=== PATIENT | female | born 1940 | race Caucasian/White ===

== ENCOUNTER → 2017-12-04 11:09 | Outpatient (CLI) | payer MEDICARE, OTHER, SELFPAY ==
--- NOTE | 2017-12-04 11:30 | PET_ITS ---
EXAMINATION: FDG PET CT INDICATIONS: A 77-year-old female with history of pancreatic carcinoma presenting for restaging examination. COMPARISON EXAMINATION: Prior FDG PET study dated 02/20/17. INDEX LESION SIZE SUV INTERPRETATION PERSISTENT: Left mid posteromedial hemithorax pulmonary parenchyma 2.0 compared to 2.9, 02/20/17 Quantitative criteria for viable neoplasm are not fulfilled NEW: Left mid posteromedial hemithorax pulmonary parenchyma 2.1 Quantitative criteria for viable neoplasm are not fulfilled, sequential radiologic investigation recommended PREVIOUS: Mid abdominal retroperitoneum and mesentery Demonstrate metabolic resolution on the current examination TECHNIQUE: Following the intravenous administration of 12.76 mCi of F-18 deoxyglucose via the MediPort, multiplanar image acquisitions of the neck, chest, abdomen and pelvis to level of mid thigh, obtained at one hour post radiopharmaceutical administration contemporaneously interpreted with the current CT of the neck, chest, abdomen and pelvis to level of mid thigh, dated 12/04/17 via coregistration and prior FDG PET study dated 02/20/17 reveal: SERUM GLUCOSE LEVEL: 129 mg/dl. HEIGHT: 64 inches. WEIGHT: 90 lbs. FINDINGS: 1. Mild increased glucose metabolism is redefined in the left mid posteromedial hemithorax pulmonary parenchyma generating a current calculated maximum standard uptake value of 2.0 compared to 2.9 defined on the FDG PET study dated 02/20/17. Quantitative criteria for viable neoplasm are not fulfilled. 2. Newly identified increased radiopharmaceutical concentration is manifest in the left mid posteromedial hemithorax pulmonary parenchyma, left lower lobe generating a calculated maximum standard uptake value of 2.1. Quantitative criteria for viable neoplasm are not fulfilled. 3. Normal physiologic distribution of the radiopharmaceutical is apparent in the hepatic and splenic parenchyma, both renal units, bladder and visualized intestinal tract. There is uniform distribution of the radiopharmaceutical concentration compared on the cerebellar hemispheres and cerebral cortex. Diffuse intestinal tract activity is noted throughout all four quadrants of the abdominal-pelvic retroperitoneum, mesentery consistent with normal physiologic distribution of the radiopharmaceutical. The previously identified mid abdominal retroperitoneal and abdominal mesenteric nodular hypermetabolic foci noted on the FDG PET study dated 02/20/17 are not apparent on the current examination. Vhov-R-Lxun-MediPort placement is noted. The prior defined morphologic-anatomic changes noted on CT of the neck, chest, abdomen and pelvis manifest on the FDG PET CT study dated 02/20/17 are essentially unchanged on the present examination. PET/PET/CT Tumor Base -Thigh Subs IMPRESSION: 1. NEGATIVE EXAMINATION. There is no definitive quantitative scintigraphic evidence of recurrent-metastatic viable neoplasm. 2. Enhanced glucose concentration redefined in the left mid posteromedial hemithorax pulmonary parenchyma, as well as newly apparent in the left mid medial lung zone does not fulfill quantitative criteria for viable neoplasm. (Gomes et al, Annals of Internal Medicine, 138:724, 2003). 3. Metabolic and/or anatomic stability may be ensured in the left hemithorax pulmonary parenchymal abnormality with repeat FDG PET study and/or CT of the thorax in three-six months. (Xiu, Journal of Nuclear Medicine 45:88, P2004. Devan, Seminars in Thoracic and Cardiovascular Surgery 14:292, 2002). 4. There is interval metabolic resolution of the previously identified mid abdominal retroperitoneal and mesenteric hypermetabolic abnormalities. 5. Overall, compared to the prior FDG PET study dated 02/20/17, there is current absence of defined viable neoplastic disease. Electronic Signature Mikey Rosario D.O. Electronically Signed: Mikey Rosario DO at 21:36 EDT Tel , Service support ,
== END ==
PROVIDERS: Visit Provider Internal Medicine Medical Oncology
DX: C25.1 Malignant neoplasm of body of pancreas (principal); C34.32 Malignant neoplasm of lower lobe, left bronchus or lung; R97.8 Other abnormal tumor markers
CPT/HCPCS: 78815; A9552; A4216

== ENCOUNTER → 2018-03-12 14:27 | Outpatient (CLI) | payer MEDICARE, OTHER, SELFPAY | PROVIDERS: Visit Provider Internal Medicine Medical Oncology | DX: C25.9 Malignant neoplasm of pancreas, unspecified (principal); C78.00 Secondary malignant neoplasm of unspecified lung | CPT/HCPCS: 71260; 74177; Q9967; A4216 ==

== ENCOUNTER → 2018-04-24 10:17 | Outpatient (CLI) | payer MEDICARE, OTHER, SELFPAY ==
--- NOTE | 2018-04-24 10:45 | MRI_ITS ---
STUDY: MRI BRAIN WITH AND WITHOUT CONTRAST REASON FOR EXAM: Female, 77 years old. Pancreatic cancer and right-sided headaches TECHNIQUE: Standardized multiplanar fat and water weighted pulse sequences were obtained. 8 ml of Dotarem contrast material was administered intravenously for the contrast portion of the examination. COMPARISON: 02/23/2017 FINDINGS: Normal size of the ventricles and extra-axial spaces for the patient's age. Stable white matter disease is likely microangiopathic in nature. Normal bilateral basal ganglia. Normal thalami. There is no extra-axial fluid accumulation. Normal flow voids within the major intracranial circulation suggesting patency by spin echo criteria. Normal venous enhancement. There is no enhancing intra-axial or extra-axial abnormality. Normal sella turcica, pituitary gland, infundibular stalk, optic chiasm and hypothalamus. Normal tectal plate and pineal gland. Normal midbrain, farheen and medulla. Normal cerebellum. Normal basal cisterns. Normal bilateral temporal bones. Normal bilateral internal auditory canals. No demonstrated orbital abnormality, within the constraints of a routine brain study. Normal visualized paranasal sinuses. Hyperostosis frontalis interna. Normal visualized soft tissue structures. Normal visualized upper cervical spine. MRI/Brain W/WO Contrast IMPRESSION: No evidence of infarct, hemorrhage, mass, or abnormal enhancement. No evidence of intracranial metastatic disease. Stable mild white matter disease, likely related to microangiopathy. Electronically Signed: Clemente Devries MD at 2:22 EDT Tel , Service support ,
== END ==
PROVIDERS: Referring Provider Internal Medicine Medical Oncology; Visit Provider Internal Medicine Medical Oncology
DX: R51 Headache (principal); C25.9 Malignant neoplasm of pancreas, unspecified; C78.00 Secondary malignant neoplasm of unspecified lung
CPT/HCPCS: 70553

== ENCOUNTER 2018-04-25 11:35 | Emergency (ER) | payer MEDICARE, OTHER, SELFPAY ==
[2018-04-25 11:36] VITALS: BP 146/79; PULSE 82; RESP 16; TEMP 36.7; O2SAT 98; BMI 16.5
--- NOTE | 2018-04-25 11:53 | EKG12_ITS ---
Test Reason : CP Blood Pressure : / mmHG Vent. Rate : 074 BPM Atrial Rate : 074 BPM P-R Int : 118 ms QRS Dur : 124 ms QT Int : 392 ms P-R-T Axes : 043 027 065 degrees QTc Int : 435 ms Normal sinus rhythm with sinus arrhythmia Non-specific intra-ventricular conduction delay T wave abnormality, consider lateral ischemia Abnormal ECG Confirmed by CARMEN JENKINS, CHANDLER ([id number]), content editor JESSICA CHAVEZ ([id number]) on 04/30/2018 3:11:36 PM Referred By: JOAQUIN Confirmed By:CHANDLER MORALES MD
--- NOTE | 2018-04-25 11:57 | ED.VISSUMM ---
- ER Visit Summary Date of Service: 04/25/18 Chief Complaint: Chest pain History of Present Illness: The patient is a 77 F presents to the emergency department with chest pain. Patient has a history of pancreatic cancer. She has had recurrence. She is currently undergoing chemotherapy with Dr. Gregg here in [place]. She states that she spends about 6 months a year and [place] and the other 6 months in [place]. She has had history of total pancreatectomy and is an insulin-dependent diabetic now. She was started on a new chemotherapy regimen last week. She states that approximately 12 hours of beginning it, she began to have a substernal left-sided chest heaviness into her left arm. She states it lasted about 3 days. It is since resolved. She denies dyspnea. She is mildly nauseated, but states this is chronic. She denies any shortness of breath. She was sent over from oncology due to concern for cardiac toxicity. Physical Examination: Vital signs reviewed General: Well-nourished, well-developed Head: Normocephalic, atraumatic Eyes: Pupils equal and reactive, extraocular muscles intact Neck, supple, no lymphadenopathy Heart: Regular rate and rhythm Respiratory: No distress, clear bilaterally Abdomen: Soft, nontender, nondistended, no peritoneal signs Back: Nontender Extremities: Nontender, no edema, no cords Skin: Normal color no rash Neuro: Alert and oriented, no focal or lateralizing deficits Test Results: [] Emergency Department Course and Treatment: EKG was done on patient arrival. She does have some T wave inversion in V4 and V5. I do not have an old to compare to. The patient is absolutely pain-free here. Her x-ray shows some scarring which does appear to be chronic. Her labs are at her baseline. Her cardiac enzymes are normal. At this time, given the patient's lack of pain, normal cardiac enzymes, and history of new chemotherapy I do feel that she is safe for discharge with outpatient follow-up. She had no exertional dyspnea. She had no further chest pain. She is comfortable with this plan of care. I did spend time counseling her on concerning symptoms and reasons to return. She will be discharged home. Treatment Plan: [] Disposition: Discharge Impression: Chest pain This note was generated with [employer] dictation software. It may contain incorrect words, spelling, and punctuation that were not noted in review of the chart prior to signing ED Disposition - Plan for ED Patient: Chief Complaint: Chest Other Instructions: ED Chest Pain Atypical Unkn Cause Referrals: [facility] Doctor,Out of [Primary Care Provider] -
[2018-04-25 12:09] VITALS: O2SAT 100
--- NOTE | 2018-04-25 12:10 | RAD_ITS ---
STUDY: X-RAY CHEST REASON FOR EXAM: Female, 77 years old. Chest pain TECHNIQUE: Single AP portable view of the chest. COMPARISON: None. FINDINGS: MediPort is seen on the right side is in good position. There is scarring in the superior segment of the left lung lower lobe. There is no demonstrated pleural abnormality. Normal size heart. Normal mediastinum and sarita. Normal visualized pulmonary arteries. Normal visualized aortic arch and descending thoracic aorta. There are diffuse degenerative changes of the visualized thoracic spine. There is degenerative osteoarthritis of the bilateral shoulders. There is no demonstrated abnormality of the visualized soft tissue structures of the upper abdomen. RAD/Chest 1 View (Portable) IMPRESSION: There is scarring in the superior segment of the left lung lower lobe. Electronically Signed: Micheline Clarke MD at 12:54 EDT Tel , Service support ,
[2018-04-25 12:23] LABS: Basophil# 0.02 X10^3/uL; Basophil% 0.2 % (0-1); Hematocrit 30.2 % (37-47); Hemoglobin 9.4 g/dl (12.0-15.0); Lymphocyte % 6.2 % (19-41); Mean Corp Hgb Conc 31.1 g/gl (32-36); Mean Corpuscular Hgb 31.5 pg (27.0-32.0); Mean Corpuscular Volume 101.3 fL (81-99); Mean Platelet Vol. 9.9 fl (6.2-12.0); Monocyte% 6.2 % (0-10); Neutrophil # 6.99 X10^3/uL (2.7-7.7); Neutrophil % 87.2 % (47-70); Platelet Count 272 K/mm3 (150-450); RBC Distribution Width SD 54.7 fl (35.1-43.9); Red Blood Count 2.98 M/mm3 (4.2-5.4)
[2018-04-25 12:34] LABS: Differential Indicated SCAN CRITERIA MET; POSITIVE COUNT NO; POSITIVE DIFFERENTIAL YES; POSITIVE MORPHOLOGY NO
[2018-04-25 12:35] LABS: Anion Gap 6 (5-15); BUN 11 mg/dL (7-18); BUN/Creat Ratio 21.6 RATIO (10-20); Chloride 104 mmol/L (98-107); Creatinine, Serum 0.51 mg/dL (0.55-1.02); EST Glomerular Filtration Rate 124 mL/min (>60); Est Glom Filt Rate - Afr Amer 151 mL/min (>60); Estimated Creatinine Clearance 32.39 ml/min; Glucose 255 mg/dL (74-106); Potassium 3.6 mmol/L (3.5-5.1); Sodium Level 141 mmol/L (136-145)
[2018-04-25 12:55] LABS: Hypochromasia 1+; Macrocytosis 1+; Platelet Estimate ADEQUATE (ADEQ)
[2018-04-25 13:03] VITALS: BP 140/81; PULSE 77; RESP 15; O2SAT 98
== END 2018-04-25 13:09 | disposition home or self-care (01) ==
LOC: ED 12:15
PROVIDERS: Emergency Provider Emergency Medicine
DX: R07.9 Chest pain, unspecified (principal); C25.9 Malignant neoplasm of pancreas, unspecified; E11.9 Type 2 diabetes mellitus without complications; Z79.4 Long term (current) use of insulin; R11.0 Nausea
CPT/HCPCS: 36415; 71045; 80048; 84484; 85025; 93005; 99283; A4216

== ENCOUNTER 2018-05-12 05:31 | Inpatient (IN) | payer MEDICARE, OTHER, SELFPAY ==
[2018-05-12 05:45] VITALS: BMI 16.0
--- NOTE | 2018-05-12 06:37 | HP.PCM_ITS ---
Problem List (1) Intractable abdominal pain Status: Acute (2) Pancreatic cancer metastasized to lung Status: Chronic History of Present Illness Date of Admission: 05/12/18 Chief Complaint: headache The patient is a 77 year old F with a significant history of pancreatic cancer metastatic to her lungs who presented with excruciating headache that started the day before her admission to the hospital. Patient initially presented to [facility] ED. Her case was discussed with our oncology on-call and the plan was for the patient to get an MRI of her head. However because [facility] did not have an MRI patient was transferred to the hospital. Patient reported that in the morning before admission she had excruciating pain in the head and she heard multiple popping sounds from her head. Her pain is exacerbated by moving of her neck. She describes her pain as sharp and it involves her whole head. She did not have any visual symptoms before going to the ED. However after administration of IV narcotics at [facility] patient reports that she is seeing double. Patient reports that morphine IV given at outside hospital did not provide any relief. However Dilaudid IV given helped her pain. Her pancreatic cancer was diagnosed in September 2013 and she had a complete pancreatomy; spleen removal; removal of 62 lymph nodes; removal of part of the stomach and duodenum. She had a chemotherapy and radiation while seen in [place]. At this point the cancer has metastasized to her lungs. She still gets chemotherapy. Her last chemotherapy was 10 days ago. She reported that radiation therapy did not help her. She does not get any radiation therapy at this time. She follows up with Dr. Greenfield, oncologist. 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 GERD (gastroesophageal reflux disease) K21.9 Gallstones K80.20 H/O transfusion of whole blood Z92.89 Heart murmur R01.1 High cholesterol E78.00 History of hysterectomy Z90.710 IBS (irritable bowel syndrome) K58.9 Osteoarthritis M19.90 Pancreatitis K85.90 Recurrent UTI N39.0 Type 1 diabetes mellitus E10.9 Dx : d/t pancreatectomy in 2013 Last exacerbation : DKA : never Hypoglycemic episode : never ER visit : never Vision problems H54.7 Allergies hydrocodone [From Vicodin] Adverse Reaction (Intermediate, Verified 05/09/18 11:26) Unknown MAKES HEART RACE pegfilgrastim [From Neulasta] Adverse Reaction (Intermediate, Verified 05/09/18 11:26) Abd cramps/diarrhea procaine [From Novocain] Adverse Reaction (Mild, Verified 05/09/18 11:26) Unknown GOES RIGHT TO SLEEP Home Medications: Ambulatory Orders Medication Instructions Recorded Calcium Carbonate [Tums] 500 mg PO 4X/DAY 02/03/17 Calcium Citrate/Vitamin D3 1 ea PO BID 02/03/17 [Calcium Citrate-Vit D3 Tablet] Cholecalciferol (Vitamin D3) 1,000 unit PO DAILY 02/03/17 [Vitamin D3] Clonazepam [Klonopin] 0.5 mg PO QHS 02/03/17 Duloxetine HCl 30 mg PO DAILY 02/03/17 Glucagon,Human Recombinant 1 mg IJ PRN PRN 02/03/17 [Glucagon Emergency Kit] Ketoconazole [Nizoral] 120 ml TP UD 02/03/17 Magnesium Oxide [Magnesium] 500 mg PO DAILY 02/03/17 Multivit-Min/FA/Lycopen/Lutein 1 tab PO DAILY 02/03/17 [Centrum Silver Tablet] Omeprazole [Prilosec] 20 mg PO DAILY 02/03/17 Prochlorperazine Maleate 10 mg PO DAILY 02/03/17 [Compazine] Ranitidine HCl [Zantac 75] 75 mg PO QHS 02/03/17 Simvastatin [Zocor] 10 mg PO QHS 02/03/17 Thiamine Mononitrate [Vitamin B-1] 100 mg PO DAILY 02/03/17 Lipase/Protease/Amylase [Josafat Velasquez 2 ea PO TID #180 capsule. 12/06/17 36,000 Units Capsule] denosumab 60 mg/mL subcutaneous 60 mg SC [id number] 02/28/18 syringe insulin aspart U- 100 100 unit/mL See Rx Instructions SC QDAY 02/28/18 subcutaneous solution meclizine 25 mg tablet 25 mg PO QDAY PRN 02/28/18 Magic Mouth Wash 1 dose PO PRN PRN 05/09/18 Surgical History: Surgical History (Last Reviewed 05/12/18 @ 07:54 by Sanchez Park MD) History of hip replacement Z96.649 History of pancreatectomy Z90.410 Hx of cholecystectomy Z90.49 Hx of splenectomy Z90.81 Surgical History: hysterectomy Lives: Spouse/ Significant Other Smoking Status: Never smoker Alcohol: None Review of Systems Constitutional: Denies: Chills, Fever, Weight Change HEENT: Reports: Head Aches. Denies: Sinus Congestion, Sinus Drainage Cardiovascular: Denies: Chest Pain, Palpitations Respiratory: Denies: Cough, Shortness of breath at rest, Sputum production Gastrointestinal: Denies: Abdominal Pain, Nausea, Vomiting Genitourinary: Denies: Dysuria Musculoskeletal: Denies: Joint Pain, Joint Tenderness Skin: Denies: Rash, Wounds Neurological: Denies: Numbness, Tingling, Focal weakness Psychiatric: Denies: Anxiety, Depression, Homicidal Ideations, Suicidal Ideations Hematologic/ Lymphatic: Denies: Easy Bruising, Easy Bleeding VTE Information - Inpt Only VTE Present on Admission: No VTE Mechan Device Prophylaxis: None VTE Pharm Prophylaxis ordered?: Yes Patient Problems: Active and Suspected Problems (Last Reviewed 05/09/18 @ 11:26 by Sabina Kwan) Intractable abdominal pain (Acute) - Physical Exam General: Alert, Oriented x3 - Patient thought the month was March while it is April. She knew the year., Cooperative HEENT: Atraumatic, PERRLA, EOMI, Normocephalic Neck: Supple, No JVD, Negative Carotid Bruits, - - Headache in moving of neck Lungs: Clear to auscultation, Normal air movement Cardiovascular: Regular rate, No murmurs Abdomen: Bowel Sounds Present, Soft, Non Tender Extremities: No edema, Capillary Refill Less than 3 Seconds Skin: No rashes, No breakdown Musculoskeletal: No Tenderness to Palpation of Joints or Extremities Neurological: Cranial nerves II-XII grossly intact Psych/Mental Status: Normal Affect, Appropriate Assessment/Plan All Active Problems (Last Reviewed 05/09/18 @ 11:26 by Sabina Kwan) Chest pain (Acute) Intractable abdominal pain (Acute) Chemotherapy management, encounter for (Acute) Dizziness (Resolved) Muscle cramping (Acute) Mucositis (Acute) C. difficile diarrhea (Acute) Anemia due to chemotherapy (Acute) Peripheral edema (Acute) Chemotherapy management, encounter for (Acute) The patient is a 77 year old F with a significant history of pancreatic cancer metastatic to her lungs who presented with excruciating headache. Intractable headache Likely diagnosis is metastasis of cancer to brain MRI of head ordered. Decadron scheduled ordered Dilaudid as needed ordered. Home Compazine for nausea continued. As needed Zofran ordered. Bowel protocol with Senokot in the setting of narcotic administration. CBC; CMP and lactic acid ordered. Metastatic pancreatic cancer Oncology consult. Diabetes mellitus. Patient had diabetes after a total pancreatic resection. The patient to continue insulin pump. DVT prophylaxis Subcutaneous Lovenox. Code Visit Inpatient E&M: 46265 Init Hosp L3
[2018-05-12 06:41] VITALS: BMI 16.0
--- NOTE | 2018-05-12 06:55 | MRI_ITS ---
STUDY: MRI BRAIN WITH AND WITHOUT CONTRAST REASON FOR EXAM: Female, 77 years old. garcía's, hx pancreatic ca. TECHNIQUE: Standardized multiplanar fat and water weighted pulse sequences were obtained. 4 ml of Gadavist contrast material was administered intravenously for the contrast portion of the examination. # of Images: 634 COMPARISON: April 24, 2018 FINDINGS: There is mild cerebral atrophy with widening of the extra-axial spaces and ventricular dilatation. There are a limited number of small white matter hyperintensities, distributed throughout the deep white matter tracts of the cerebral hemispheres, consistent with mild chronic white matter ischemic changes. Normal bilateral basal ganglia. Normal thalami. There is no extra-axial fluid accumulation. Normal flow voids within the major intracranial circulation suggesting patency by spin echo criteria. Normal venous enhancement. There is no enhancing intra-axial or extra-axial abnormality. Normal sella turcica, pituitary gland, infundibular stalk, optic chiasm and hypothalamus. Normal tectal plate and pineal gland. Normal midbrain, farheen and medulla. Normal cerebellum. Normal basal cisterns. Normal bilateral temporal bones. Normal bilateral internal auditory canals. No demonstrated orbital abnormality, within the constraints of a routine brain study. Normal visualized paranasal sinuses. Normal calvarium and skull base. Normal visualized soft tissue structures. Normal visualized upper cervical spine. MRI/Brain W/WO Contrast IMPRESSION: No acute intracranial abnormality or masses. Electronically Signed: Elizabeth Hopkins MD at 15:03 EDT Tel , Service support ,
[2018-05-12 07:25] VITALS: BP 158/94; PULSE 75; RESP 18; TEMP 36.8; O2SAT 98
[2018-05-12 07:42] VITALS: PULSE 80
--- NOTE | 2018-05-12 08:00 | NURSING ---
in to discuss VAD with pt at primary RN's request. Pt verbalized she is unsure if it a power port or not. Discussed when and where is was placed. Discussed could access it and treat it as non power since not clear. Discussed would not receive contrast through it if any way ordered, that she would receive that through a peripheral iv. Primary RN at bedside also discussed medications she's receiving and concern of sparing veins. Pt states she does not feel comfortable accessing her port at this time unless we can conclude the type of port she has. Again discussed where she had it placed as would request medical records from that facility however it is unclear as to when we would get this information back as it is weekend and not a medical emergency. Pt agreeable to obtaining medical records. Forms being completed for [facility] in [facility]. phone number [phone]. medical records fax number:[phone]
[2018-05-12] MEDS: 0.9% NaCl Peripheral Flush Adult/Peds IV ×4 (08:06→18:01)
[2018-05-12] MEDS: HYDROmorphone 1 MG/ML Syringe IV ×2 (08:06→18:01)
[2018-05-12] MEDS: Insulin Basal Pump SC (08:09)
--- NOTE | 2018-05-12 09:08 | PCM.HOSP.N ---
Hospitalist Note Seen and examined. Patient is admitted from vomiting ER for severe headache started yesterday a.m. Patient denies fever, chills, URI symptoms, sudden loss of urinary or fecal incontinence or seizures. Denies chronic headache. Headache is started in the front and is spread diffuse, severe and neck. Has visual symptoms of vertical malalignment but denies diplopia, photophobia or ptosis. Complaint of urinary urgency but no increased frequency, burning micturition or other lower urinary tract symptoms except chronic urinary incontinence that started after chemotherapy. Has history of CA pancreas diagnosed in 2013 status post appendectomy and chemo and radiation. Patient had 2 lung lesions in late 2015 which resolved or controlled after chemo. Patient lung exam came back in January 2018 and last chemo was about 1 week ago. Her oncologist is Dr. Greenfield. On exam Neuro: Meningeal signs including neck rigidity and Brudzinski signs are negative. Power 5/5 at major joints. Generalized muscle muscle mass loss secondary to CA pancreas and chemotherapy. Lungs: Air entry diminished in bilateral lung. No crepitation/rhonchi. Heart: S1-S2 regular, no murmur gallop rub. Chest: Mediport present in the right upper chest. Abdomen: Scaphoid, NT/ND. Bowel sounds present. Insulin pump present. Extremities: No pedal edema. Generalized decreased muscle bulk in the extremities Twelve-lead EKG shows normal sinus rhythm. Labs from outside ER reviewed Plan Labs CBC, CMP, magnesium, respiratory panel, and UA with urine culture ordered. MRI brain reported no acute intracranial abnormality or masses. C-spine MRI no acute but moderate C5-C6 central canal stenosis. Moderate left foraminal stenosis. Moderate left foraminal stenosis at C6-C7 Patient was seen by neurologist and thinks it is chemo induced headache. Recommended ID and oncologist consult. Continue steroid. Started on Depakote. DC NSAIDs. Clinical Impression(s) from Imaging Studies Brain MRI 05/12/18 06:55 IMPRESSION: No acute intracranial abnormality or masses. Electronically Signed: Elizabeth Hopkins MD at 15:03 EDT Tel , Service support , Cervical Spine MRI 05/12/18 09:09 IMPRESSION: C5/C6: Moderate central canal stenosis. Moderate left foraminal stenosis. C6/C7: Moderate left foraminal stenosis. Electronically Signed: Elizabeth Hopkins MD at 15:03 EDT Tel , Service support ,
--- NOTE | 2018-05-12 09:09 | MRI_ITS ---
STUDY: MRI CERVICAL SPINE WITHOUT CONTRAST REASON FOR EXAM: Female, 77 years old. NECK PAIN, SEVERE C5/6, 6/7 FORMINAL STENOSIS AND SPINAL STENOSIS -- garcía's, hx pancreatic ca. TECHNIQUE: Standardized fat and water weighted pulse sequences were obtained in the sagittal and axial planes. # of Images: 247 COMPARISON: None FINDINGS: Normal foramen magnum and brainstem-cervical cord junction. Normal craniovertebral junction. Normal odontoid process. Normal cervical lordosis. C2-3: Normal endplates. Normal disc height, signal and morphology. Normal central canal and intervertebral neural foramina. C3-4: There is minimal disc space narrowing and endplate spondylosis. There is no significant disc herniation, central canal or foraminal stenosis. Endplate C4-5: There is minimal disc space narrowing and endplate spondylosis. There is no significant disc herniation, central canal or foraminal stenosis. C5-6: There is moderate disc space narrowing and endplates spondylosis. There is a moderate disc osteophyte complex with moderate central canal stenosis. There is uncovertebral and facet arthropathy with mild right and moderate left foraminal stenosis C6-7: There is moderate disc space narrowing and endplates spondylosis. There is a mild disc osteophyte complex with mild central canal stenosis. There is uncovertebral facet arthropathy with minimal right and moderate left foraminal stenosis. C7-T1: Normal endplates. Normal disc height, signal and morphology. Normal central canal and intervertebral neural foramina. Normal cervical cord. Normal visualized soft tissue structures. MRI/Spine Cervical (Routine) IMPRESSION: C5/C6: Moderate central canal stenosis. Moderate left foraminal stenosis. C6/C7: Moderate left foraminal stenosis. Electronically Signed: Elizabeth Hopkins MD at 15:03 EDT Tel , Service support ,
--- NOTE | 2018-05-12 09:14 | RAD_ITS ---
STUDY: X-RAY CHEST REASON FOR EXAM: Female, 77 years old. Redness of breath dyspnea history of pancreatic cancer TECHNIQUE: PA and lateral views of the chest. # of Images: 2 COMPARISON: April 25, 2018 chest x-ray FINDINGS: There is a right-sided portacatheter is in superior vena cava. The lungs are hyperinflated. There is no demonstrated pleural abnormality. Normal size heart. Normal mediastinum and sarita. Normal visualized pulmonary arteries. There is atherosclerotic tortuosity of the aortic arch and descending thoracic aorta. There are diffuse degenerative changes of the visualized thoracic spine. Normal visualized ribs, clavicles, and shoulders. There is no demonstrated abnormality of the visualized soft tissue structures of the upper abdomen. RAD/Chest PA and Lateral IMPRESSION: Nonspecific hyperinflation of the lungs. There is focal linear density in the lingula. Lingular atelectasis and/or scarring. Electronically Signed: Neida Duran MD at 15:49 EDT Tel , Service support ,
--- NOTE | 2018-05-12 09:15 | CASEMGMT ---
Social Work Note Date of Referral: 05/12/18 Date of Intervention: 05/12/18 Informant: Self-Referral Reason for Consult: Metastatic Cancer Information obtained from: Medical record, pt and pt's spouse, Nikos. Pt is alert & oriented x4. States that she was recently given pain medications and indicates to her spouse to answer the majority of the questions. Pt's spouse, Nikos, is sitting on her bedside feeding her breakfast upon 's entry. Pt is pleasant as evidenced by smiling and willingness to participate. Speech is soft and slow, but pt is able to maintain topic. Living Arrangements: Pt and spouse have two homes. The one in [place] is their summer home and his a two-story home which she denies having any access issues too. They also have a winter home in [place] that is one-story. They were planning to return to [place] on Monday, but will not be making this trip d/t to the pt's present condition. She denies use of DME and reports to be independent with ADLs. Spouse confirms. Education: Pt graduated high school, and is able to read and write. No comprehension issues. Spouse confirms that even throughout her treatments and diagnosis she is still present and lucid. Financial: Both report financial stability, and deny concerns otherwise. Social and/or Family Stressors: Both report that family is supportive. Identify this diagnosis as a stressor, but state they are managing. Spouse is very supportive to pt. Mental Health: When asked pt and spouse both deny. Upon chart review anxiety and depression are indicated. Substance Use: Declines ever smoking or drinking. Advanced Directives: On file, and confirm with pt and spouse that Nikos (spouse) is to remain HCPOA. ASSESSMENT: Pt is pleasant upon presentation, but does appear weak and tired. Spouse participates in assessment by answering, although pt remained awake throughout and would nonverbally indicate agreement throughout assessment by nodding her head or smiling. They see Dr. Greenfield while here in [place] and receive chemotherapy at [facility]. They have Dr. Elizalde listed as a PCP but report that this physician left the practice. They have a new pt appointment setup in June with a Jennifer Tellez and would like to have this moved up a little. They have not met this physician yet, but report she was recommended and this will be the new PCP upon initiation of services. At this time they deny needs and anticipate discharge to home. Preferred pharmacy is [facility] in [place]. Educate to palliative care. They do not request a referral at this time and accept brochure to review. Pt and spouse made aware if they have additional needs or questions. PLAN: Return home at discharge with support of spouse. Tara Chavira, PROBATION COUNSELOR, BERTRAM
[2018-05-12 09:58] LABS: Lactic Acid 2.1 mmol/L (0.4-2.0)
[2018-05-12 10:23] LABS: Absolute Lymphocyte Count 1.02 X10^3/ul (0.83-4.51); Absolute Neutrophil Count 5.2 X10^3/uL (2.0-7.7); Basophil# 0.02 X10^3/uL; Basophil% 0.3 % (0-1); Hematocrit 29.8 % (37-47); Hemoglobin 9.2 g/dl (12.0-15.0); Lymphocyte # 1.02 X10^3/ul (4.0); Lymphocyte % 13.2 % (19-41); Mean Corp Hgb Conc 30.9 g/gl (32-36); Mean Corpuscular Hgb 30.5 pg (27.0-32.0); Mean Corpuscular Volume 98.7 fL (81-99); Mean Platelet Vol. 10.5 fl (6.2-12.0); Monocyte# 1.44 X10^3/uL; Monocyte% 18.7 % (0-10); Neutrophil # 5.18 X10^3/uL (2.7-7.7); Neutrophil % 67.3 % (47-70); Platelet Count 394 K/mm3 (150-450); RBC Distribution Width CV 15.8 % (11.6-14.6); RBC Distribution Width SD 55.6 fl (35.1-43.9); Red Blood Count 3.02 M/mm3 (4.2-5.4); White Blood Count 7.7 K/mm3 (4.4-11.0)
[2018-05-12 10:28] LABS: Differential Indicated SCAN CRITERIA MET; POSITIVE COUNT NO; POSITIVE DIFFERENTIAL NO; POSITIVE MORPHOLOGY NO
[2018-05-12 10:29] LABS: ALB/GLOB Ratio 0.7 RATIO (0.9-2.4); AST(SGOT) 31 U/L (15-37); Absolute Nucleated RBC Count 0.06 10^3/uL (0-5); Alanine Aminotransfer ALT/SGPT 36 U/L (13-56); Albumin, Serum 2.9 g/dL (3.2-5.0); Alkaline Phosphatase 431 U/L (45-117); Anion Gap 7 (5-15); BUN 9 mg/dL (7-18); BUN/Creat Ratio 18.5 RATIO (10-20); Calcium,Total 7.7 mg/dL (8.5-10.1); Chloride 100 mmol/L (98-107); Creatinine, Serum 0.49 mg/dL (0.55-1.02); EST Glomerular Filtration Rate 131 mL/min (>60); Est Glom Filt Rate - Afr Amer 158 mL/min (>60); Estimated Creatinine Clearance 31.54 ml/min; Globulin 3.9 g/dL (2.2-4.2); Glucose 245 mg/dL (74-106); Magnesium 1.7 mg/dL (1.6-2.6); NRBC Flagged by Analyzer 0.8 % (0-5); Potassium 3.6 mmol/L (3.5-5.1); Protein, Total 6.8 g/dL (6.4-8.2); Sodium Level 134 mmol/L (136-145)
[2018-05-12 10:44] LABS: Anisocytosis 2+; Hypochromasia 1+
[2018-05-12] MEDS: Senna/Docusate Sodium 1 Tablet 2 TABLET PO (12:32)
[2018-05-12] MEDS: Pantoprazole Sodium 20 MG Tablet PO (12:33)
[2018-05-12] MEDS: Calcium Carb/Vitamin D 1 TABLET Tablet PO ×2 (12:33→17:48)
[2018-05-12] MEDS: Calcium Carbonate 500 MG Tablet PO ×2 (12:33→17:47)
[2018-05-12] MEDS: Insulin Lispro 100 UNIT/ML INSULN.PEN SQ ×3 (12:35→21:18)
[2018-05-12] MEDS: DULoxetine Hcl 30 MG Capsule PO (12:36)
[2018-05-12] MEDS: Thiamine Hydrochloride 100 MG Tablet PO (12:37)
[2018-05-12] MEDS: Multivitamins,Ther W-Minerals Tablet 1 TABLET PO (12:37)
[2018-05-12] MEDS: Magnesium Oxide 400 MG Tablet PO (12:37)
[2018-05-12] MEDS: Glucerna Shake 120 ML LIQUID PO ×2 (12:43→21:16)
[2018-05-12 12:46] LABS: Bedside Glucose 174 mg/dL (70-110)
[2018-05-12] MEDS: Enoxaparin 40 MG/0.4 ML Syringe SC (12:47)
[2018-05-12] MEDS: Ondansetron 4 MG/2 ML Vial IV (12:59)
[2018-05-12] MEDS: 0.9% Normal Saline 1,000 ML 100 ML IV ×2 (12:59→23:44)
[2018-05-12 13:08] LABS: Reflex Lactate? Y
[2018-05-12 14:22] LABS: Lactic Acid 2.4 mmol/L (0.4-2.0)
--- NOTE | 2018-05-12 14:53 | CON.PCM_ITS ---
Reason for Consult Date of Consultation: 05/12/18 Reason for Consultation: headache History of Present Illness: The patient is a 77 year old F with history as below who presents with worsening headache. reports currently 01/30. was 05/02 yesterday. reports headache starting intermittently 10 days ago after initiation of new chemotherapy abraxane. no f/c at home. family reports unsteady but otherwise feels well at home. decadron started yesterday. 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 Patient initially presented to [facility] ED. Her case was discussed with our oncology on-call and the plan was for the patient to get an MRI of her head. However because [facility] did not have an MRI patient was transferred to the hospital. Patient reported that in the morning before admission she had excruciating pain in the head and she heard multiple popping sounds from her head. Her pain is exacerbated by moving of her neck. She describes her pain as sharp and it involves her whole head. She did not have any visual symptoms before going to the ED. However after administration of IV narcotics at [facility] patient reports that she is seeing double. Patient reports that morphine IV given at outside hospital did not provide any relief. However Dilaudid IV given helped her pain. Her pancreatic cancer was diagnosed in September 2013 and she had a complete pancreatomy; spleen removal; removal of 62 lymph nodes; removal of part of the stomach and duodenum. She had a chemotherapy and radiation while seen in [place]. At this point the cancer has metastasized to her lungs. She still gets chemotherapy. Her last chemotherapy was 10 days ago. She reported that radiation therapy did not help her. She does not get any radiation therapy at this time. She follows up with Dr. Greenfield, oncologist. 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 GERD (gastroesophageal reflux disease) K21.9 Gallstones K80.20 H/O transfusion of whole blood Z92.89 Heart murmur R01.1 High cholesterol E78.00 History of hysterectomy Z90.710 IBS (irritable bowel syndrome) K58.9 Osteoarthritis M19.90 Pancreatitis K85.90 Recurrent UTI N39.0 Type 1 diabetes mellitus E10.9 Dx : d/t pancreatectomy in 2013 Last exacerbation : DKA : never Hypoglycemic episode : never ER visit : never Vision problems H54.7 Allergies hydrocodone [From Vicodin] Adverse Reaction (Intermediate, Verified 05/09/18 11:26) Unknown MAKES HEART RACE pegfilgrastim [From Neulasta] Adverse Reaction (Intermediate, Verified 05/09/18 11:26) Abd cramps/diarrhea procaine [From Novocain] Adverse Reaction (Mild, Verified 05/09/18 11:26) Unknown GOES RIGHT TO SLEEP Home Medications: Ambulatory Orders Medication Instructions Recorded Calcium Carbonate [Tums] 500 mg PO 4X/DAY 02/03/17 Calcium Citrate/Vitamin D3 1 ea PO BID 02/03/17 [Calcium Citrate-Vit D3 Tablet] Cholecalciferol (Vitamin D3) 1,000 unit PO DAILY 02/03/17 [Vitamin D3] Clonazepam [Klonopin] 0.5 mg PO QHS 02/03/17 Duloxetine HCl 30 mg PO DAILY 02/03/17 Glucagon,Human Recombinant 1 mg IJ PRN PRN 02/03/17 [Glucagon Emergency Kit] Ketoconazole [Nizoral] 120 ml TP UD 02/03/17 Magnesium Oxide [Magnesium] 500 mg PO DAILY 02/03/17 Multivit-Min/FA/Lycopen/Lutein 1 tab PO DAILY 02/03/17 [Centrum Silver Tablet] Omeprazole [Prilosec] 20 mg PO DAILY 02/03/17 Prochlorperazine Maleate 10 mg PO DAILY 02/03/17 [Compazine] Ranitidine HCl [Zantac 75] 75 mg PO QHS 02/03/17 Simvastatin [Zocor] 10 mg PO QHS 02/03/17 Thiamine Mononitrate [Vitamin B-1] 100 mg PO DAILY 02/03/17 Lipase/Protease/Amylase [Josafat Velasquez 2 ea PO TID #180 capsule. 12/06/17 36,000 Units Capsule] denosumab 60 mg/mL subcutaneous 60 mg SC [id number] 02/28/18 syringe insulin aspart U- 100 100 unit/mL See Rx Instructions SC QDAY 02/28/18 subcutaneous solution meclizine 25 mg tablet 25 mg PO QDAY PRN 02/28/18 Magic Mouth Wash 1 dose PO PRN PRN 05/09/18 Surgical History: Surgical History (Last Reviewed 05/12/18 @ 14:59 by Vlad Mai MD) History of hip replacement Z96.649 History of pancreatectomy Z90.410 Hx of cholecystectomy Z90.49 Hx of splenectomy Z90.81 Surgical History: hysterectomy Lives: Spouse/ Significant Other Smoking Status: Never smoker Alcohol: None Review of Systems Constitutional: Reports: Night Sweats. Denies: Fever Neurological: Reports: Headaches Patient Problems: Active and Suspected Problems (Last Reviewed 05/12/18 @ 14:59 by Vlad Mai MD) Intractable abdominal pain (Acute) - Physical Exam Vital Signs Temp Pulse Resp BP Pulse Ox 36.8 C 80 18 158/94 H 98 05/12/18 07:25 05/12/18 07:42 05/12/18 07:25 05/12/18 07:25 05/12/18 07:25 Oxygen Delivery Method Room Air Weight: 42.4 kg Body Mass Index (BMI) 16.0 Intake and Output for Last 24 Hours 05/10/18 05/11/18 05/12/18 23:59 23:59 23:59 Intake Total 0 / 0 Output Total 0 / 0 Balance 0 / 0 Laboratory Tests Past 24 Hrs 05/12/18 05/12/18 05/12/18 09:00 09:00 09:00 WBC 7.7 RBC 3.02 L Hgb 9.2 L Hct 29.8 L MCV 98.7 MCH 30.5 MCHC 30.9 L RDW 15.8 H RDW Differential 55.6 H Plt Count 394 MPV 10.5 Immature Gran % (Auto) 0.500 Neut % (Auto) 67.3 Lymph % (Auto) 13.2 L Walker % (Auto) 18.7 H Eos % (Auto) 0.0 Baso % (Auto) 0.3 Absolute Neuts (auto) 5.2 Absolute Lymphs (auto) 1.02 Total Counted Not Reportable Nucleated RBC % 0.8 Hypochromasia 1+ Anisocytosis 2+ Absolute Retic 0.06 Sodium 134 L Potassium 3.6 Chloride 100 Carbon Dioxide 27.0 Anion Gap 7 BUN 9 Creatinine 0.49 L Estim Creat Clear Calc 31.54 Est GFR (MDRD) Af Amer 158 Est GFR (MDRD) Non-Af 131 BUN/Creatinine Ratio 18.5 Glucose 245 H Lactic Acid 2.1 H Calcium 7.7 L Magnesium 1.7 Total Bilirubin 0.80 AST 31 ALT 36 Alkaline Phosphatase 431 H Total Protein 6.8 Albumin 2.9 L Globulin 3.9 Albumin/Globulin Ratio 0.7 L 05/12/18 13:36 WBC RBC Hgb Hct MCV MCH MCHC RDW RDW Differential Plt Count MPV Immature Gran % (Auto) Neut % (Auto) Lymph % (Auto) Walker % (Auto) Eos % (Auto) Baso % (Auto) Absolute Neuts (auto) Absolute Lymphs (auto) Total Counted Nucleated RBC % Hypochromasia Anisocytosis Absolute Retic Sodium Potassium Chloride Carbon Dioxide Anion Gap BUN Creatinine Estim Creat Clear Calc Est GFR (MDRD) Af Amer Est GFR (MDRD) Non-Af BUN/Creatinine Ratio Glucose Lactic Acid 2.4 H Calcium Magnesium Total Bilirubin AST ALT Alkaline Phosphatase Total Protein Albumin Globulin Albumin/Globulin Ratio POC Glucose 05/12/18 12:32 POC Glucose 174 H Current Home Med List Medication Instructions Recorded Confirmed Type Calcium Carbonate [Tums] 500 mg PO 4X/DAY 02/03/17 05/12/18 History Calcium Citrate/Vitamin D3 1 ea PO BID 02/03/17 05/12/18 History [Calcium Citrate-Vit D3 Tablet] Cholecalciferol (Vitamin D3) 1,000 unit PO DAILY 02/03/17 05/12/18 History [Vitamin D3] Clonazepam [Klonopin] 0.5 mg PO QHS 02/03/17 05/12/18 History Duloxetine HCl 30 mg PO DAILY 02/03/17 05/12/18 History Glucagon,Human Recombinant 1 mg IJ PRN PRN 02/03/17 05/12/18 History [Glucagon Emergency Kit] Ketoconazole [Nizoral] 120 ml TP UD 02/03/17 05/12/18 History Magnesium Oxide [Magnesium] 500 mg PO DAILY 02/03/17 05/12/18 History Multivit-Min/FA/Lycopen/Lutein 1 tab PO DAILY 02/03/17 05/12/18 History [Centrum Silver Tablet] Omeprazole [Prilosec] 20 mg PO DAILY 02/03/17 05/12/18 History Prochlorperazine Maleate 10 mg PO DAILY 02/03/17 05/12/18 History [Compazine] Ranitidine HCl [Zantac 75] 75 mg PO QHS 02/03/17 05/12/18 History Simvastatin [Zocor] 10 mg PO QHS 02/03/17 05/12/18 History Thiamine Mononitrate [Vitamin B-1] 100 mg PO DAILY 02/03/17 05/12/18 History Lipase/Protease/Amylase [Josafat Velasquez 2 ea PO TID #180 capsule. 12/06/17 05/12/18 Rx 36,000 Units Capsule] denosumab 60 mg/mL subcutaneous 60 mg SC [id number] 02/28/18 05/12/18 History syringe insulin aspart U- 100 100 unit/mL See Rx Instructions SC QDAY 02/28/18 05/12/18 History subcutaneous solution meclizine 25 mg tablet 25 mg PO QDAY PRN 02/28/18 05/12/18 History Magic Mouth Wash 1 dose PO PRN PRN 05/09/18 05/12/18 History Current Medications Generic Name Dose Route Start Last Admin Trade Name Freq PRN Reason Stop Dose Admin Atorvastatin Calcium 5 mg 05/12/18 22:00 Lipitor PO QHS [facility] Calcium Carbonate 500 mg 05/12/18 11:00 05/12/18 12:33 Tums PO 500 mg ACHS ANGEL Administration Calcium/Vitamin D 1 tablet 05/12/18 10:00 05/12/18 12:33 Os-[place] 500mg + D PO 1 tablet BIDCM [facility] Administration Cholecalciferol 1,000 unit 05/12/18 10:00 05/12/18 12:33 Vitamin D PO 1,000 unit DAILY ANGEL Administration Clonazepam 0.5 mg 05/12/18 22:00 Klonopin PO QHS [facility] Dexamethasone Sodium Phosphate 4 mg 05/12/18 14:00 05/12/18 08:06 Decadron IV 4 mg Q8 ANGEL Administration Dextrose 0 gm 05/12/18 09:13 [id number] Syringe IV X1 PRN Hypoglycemia Protocol Duloxetine HCl 30 mg 05/12/18 10:00 05/12/18 12:36 Cymbalta PO 30 mg DAILY ANGEL Administration Enoxaparin Sodium 40 mg 05/12/18 10:00 05/12/18 12:47 Lovenox SC 40 mg DAILY@1000 ANGEL Administration Famotidine 20 mg 05/12/18 11:00 Pepcid PO QHS PRN PRN HEARTBURN Glucagon 1 mg 05/12/18 09:13 IM .X1 PRN Hypoglycemia Hydromorphone HCl 1 mg 05/12/18 06:55 05/12/18 08:06 Dilaudid Inj IV 1 mg Q3H PRN PRN Administration SEVERE PAIN (6-10/10) Sodium Chloride 1,000 mls @ 100 mls/hr 05/12/18 11:00 05/12/18 12:59 IV 100 mls/hr .Q10H ANGEL Administration Insulin Aspart 0 unit 05/12/18 07:00 05/12/18 08:09 Pump, Basal SC 4.05 units UD ANGEL Administration Insulin Human Lispro 0 unit 05/12/18 11:00 05/12/18 12:35 Humalog Kwikpen (Bkc) SQ 1 units ACHS ANGEL Administration Protocol Ketorolac Tromethamine 15 mg 05/12/18 09:13 Toradol IV 05/17/18 09:13 Q6H PRN PRN severe headache Lidocaine/Diphenhydr/Alum/Mg/Simeth 10 ml 05/12/18 11:34 PO TID PRN PRN MOUTH PAIN Magnesium Hydroxide 30 ml 05/12/18 06:55 Milk Of Magnesia PO DAILY PRN PRN Constipation Magnesium Oxide 400 mg 05/12/18 10:00 05/12/18 12:37 Mag-Ox 400 PO 400 mg DAILY ANGEL Administration Meclizine HCl 25 mg 05/12/18 07:29 Antivert PO DAILY PRN PRN DIZZINESS Multivitamins/Minerals 1 tablet 05/12/18 10:00 05/12/18 12:37 Multivitamin With Minerals PO 1 tablet DAILY@0800 [facility] Administration Nutritional Formula (Lactose Free) 120 ml 05/12/18 10:00 05/12/18 13:44 Glucerna Shake PO Not Given 4X/DAY ANGEL Ondansetron HCl 4 mg 05/12/18 06:55 05/12/18 12:59 Zofran IV 4 mg Q6H PRN PRN Administration NAUSEA/VOMITING Pancrelipase 6 capsule 05/12/18 12:00 05/12/18 12:[address] 12,000 Unit Capsule PO 6 capsule TIDCM ANGEL Administration Pantoprazole Sodium 20 mg 05/12/18 12:00 05/12/18 12:33 Protonix PO 20 mg DAILY ANGEL Administration Potassium Chloride 40 meq 05/12/18 13:00 05/12/18 12:56 K-Dur PO 40 meq DAILYCM ANGEL Administration Prochlorperazine Maleate 10 mg 05/12/18 10:59 Compazine Tablet PO DAILY PRN NAUSEA Senna/Docusate Sodium 2 tablet 05/12/18 10:00 05/12/18 12:32 Senokot-S, Rosalia-Colace PO 2 tablet BID ANGEL Administration Sodium Chloride 5 - 30 ml 05/12/18 07:20 05/12/18 12:59 IV 10 ml UD PRN Administration SALINE FLUSH Thiamine HCl 100 mg 05/12/18 10:00 05/12/18 12:37 Vitamin B1 PO 100 mg DAILY@0800 ANGEL Administration Assessment/Plan All Active Problems (Last Reviewed 05/12/18 @ 14:59 by Vlad Mai MD) Chest pain (Acute) Intractable abdominal pain (Acute) Chemotherapy management, encounter for (Acute) Dizziness (Resolved) Muscle cramping (Acute) Mucositis (Acute) C. difficile diarrhea (Acute) Anemia due to chemotherapy (Acute) Peripheral edema (Acute) Chemotherapy management, encounter for (Acute) status migranosus, ? chemo induced dc steroids after another 24 hrs unless needed from oncology standpoint depakote dc nsaids due to rebound consult id suggest contact oncology about possible med induced headache
[2018-05-12 15:14] VITALS: BP 149/92; PULSE 79; RESP 18; TEMP 37; O2SAT 81
--- NOTE | 2018-05-12 15:30 | ONC.CONS.INP ---
Subjective Date of Service:: 05/12/18 Chief Complaint: headache History of Present Illness: Ms. Jennifer Estes is a very pleasant 77y.o.woman who was diagnosed with Pancreatic cancer stage IIB(T3 N1 M0) in October 2013, had neoadjuvant 5FU and Radiation therapy. Subsequently underwent Whipple's procedure, found to have 08/14 nodes positive and treated with adjuvant Gemzar and Oxaliplatin. She had increased Ca19-9 in 06/2016, found to 2 LLL lung nodules, bx showed metastatic pancreatic cancer and received Gemox on 07/27/2016- 01/14- in [place]. She received SBRT to lung nodules on 12/30, 01/02, 01/04, 01/06, 01/09 of this year. She spends summer/fall in [place] and winter/spring in [place]. PET/CT scan obtained 02/20/2017 showed persistent left lung disease and new lesions in the peritoneum suggestive of progressive disease. Began Onivyde, 5FU and Leucovorin 03/20/17- 04/10. Was found to have C.difficile diarrhea on 01/25/2018. PET/CT on 04/16/2018 showed mild increase in hypermetabolic activity in left lower lobe suggestive of progressive disease. She started therapy with Gemzar and Abraxane D1, 8 & 15, every 28 days on 04/18/2018. She developed chest pain/heaviness 04/25/2018, radiating to L shoulder, work up was negative. The patient developed severe 10 out of 10 generalized headache 05/11/2018 am which resulted in presentation to [facility] ED by evening. Transferred to [facility] for admission as MRI was not available in [place]. She describes hearing a popping sound immediately preceding the onset of the headache, however states this is often a common occurrence. The difference with the episode resulting in a more severe pain and longer duration. C/o neck stiffness and exacerbation of pain with neck extension. Dilaudid only modestly effective in reducing severity and voices concern as she hasn't been able to sleep. Past Medical History: Chronic Problems (Last Reviewed 05/12/18 @ 14:59 by Vlad Mai MD) Diabetes mellitus type 1, uncontrolled, insulin dependent (Chronic) Pancreatic cancer metastasized to lung (Chronic) Pancreatic cancer metastasized to intra-abdominal lymph node (Chronic) Past Medical/Surgical History: Past Medical History - Most Recent Inpatient Visit Past Medical History Start: 05/12/18 05:45 Text: Status: Complete Freq: ONCE Protocol: Document 05/12/18 05:45 MIKA (Rec: 05/12/18 07:20 [facility] [id number]) BMI Required to complete PMH What is Patient's BMI 16 Past Medical History Unable History Recalled No Query Text:Pt Unable/Family Not Present Neurologic Medical History Hx Stroke/TIA No Hx Dementia/Alzheimer's No Hx Parkinson's Disease No Hx Seizures No Hx Multiple Sclerosis No Hx Migraines No Cardiac Medical History VTE Present on Admission No Hx of Deep Vein Thrombosis/VTE/PE No Hx Hypertension No Hx Chest Pain/Angina No Hx Heart Attack No Hx Cardiac Surgery/Stents/Etc. No Hx Heart Failure No Hx Pacemaker/AICD No Hx Irregular Heartbeat and/or Afib No Hx Anticoagulant Therapy No Query Text:(Coumadin, Aspirin, Plavix, Xarelto, etc.) Hx Pain in Legs when Walking/Leg Cramps Yes: restless leg syndrome Respiratory Medical History Hx COPD No Hx Emphysema No Hx Smoking No Smoking Status Never smoker Hx Tobacco Use in last 12 months No Hx Sleep Apnea No Do you snore loudly (louder than talking No or can be heard through closed doors)? Do you often feel tired/ fatigued/ No sleepy during daytime? Has anyone observed you stop breathing No during sleep? STOP Results Negative GI Medical History Hx Ulcer No Hx Hepatitis No Hx Cirrhosis No Hx GI Bleed No Hx Unplanned Weight Loss Yes Genitourinary Medical History Indwelling Catheter in Place on Arrival/ No Admission Hx Renal Disease No Hx Dialysis No Musculoskeletal History Hx Arthritis No Hx Rheumatoid Arthritis No Endocrine Medical History Hx Diabetes Yes Hx Thyroid Disease No Hematologic Medical History Hx of Blood Transfusion Yes Hx of Transfusion in last 3 Months No Ever experience any problems with No transfusion(s)? Hx of Preganancy in last 3 Months N/A Nurse Filling Out Transfusion & SROBERTSO Questions: Date: 05/12/18 Time: 07:11 Psycho/Social Medical History Hx Depression Yes Hx Anxiety No Hx Behavior Disorder No Hx Alcohol Use No Hx Substance Use No Other Medical History Hx Blood Disorders No Hx Anemia Yes Hx Cancer Yes: PANCREATIC Hx Drug Resistant Organism No Wound/Pressure Injury Present on Arrival Yes /Admission Query Text:If yes, chart assessment in Shift/Clinical Findings Central Line/PICC/VAD Present on Arrival No /Admission Antibiotics within last 7 days? 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) GERD (gastroesophageal reflux disease) (Acute) Gallstones (Acute) H/O transfusion of whole blood (Acute) Heart murmur (Acute) High cholesterol (Acute) History of hysterectomy (Acute) IBS (irritable bowel syndrome) (Acute) Osteoarthritis (Acute) Pancreatitis (Acute) Recurrent UTI (Acute) Type 1 diabetes mellitus (Acute) Vision problems (Acute) Past Surgical History (Last Reviewed 05/12/18 @ 14:59 by Vlad Mai MD) History of hip replacement (Acute) History of pancreatectomy (Acute) Hx of cholecystectomy (Acute) Hx of splenectomy (Acute) - Social History Lives: Spouse/ Significant Other Smoking Status: Never smoker Alcohol: None Allergies/Adverse Reactions: Allergy/AdvReac Type Severity Reaction Status Date / Time hydrocodone [From Vicodin] AdvReac Intermediate Unknown Verified 05/09/18 11:26 pegfilgrastim [From Neulasta] AdvReac Intermediate Abd Verified 05/09/18 11:26 cramps/diarrhea procaine [From Novocain] AdvReac Mild Unknown Verified 05/09/18 11:26 Review of Systems Constitutional:: Reports: Weakness, Fatigue. Denies: Fever, Sweats, Weight loss, Appetite change, Chills Cardiovascular:: Denies: Chest pain, Palpitations, Dyspnea on exertion, Orthopnea, PND, Shortness of breath Respiratory: Denies: Cough, Hemoptysis, Shortness of Breath, Wheezing Gastrointestinal:: Denies: Abdominal pain, Nausea, Vomiting, Diarrhea, Constipation, Melena, Hematochezia Genitourinary: Denies: Dysuria, Hematuria, 15, Flank pain Musculoskeletal:: Denies: Back pain, Myalgia, Arthralgia Skin: Denies: Rash, Skin Changes, Wounds Neurological:: Reports: Headache, Numbness, Tingling. Denies: Dizziness, Visual changes, Tinnitus, Hearing loss Psychiatric: Denies: Anxiety, Depression, Homicidal Ideations, Suicidal Ideations Vital Signs Height 5 ft 4 in Weight: 93 lb 7.616 oz Weight in Pounds 93.5 lbs Pulse Ox 81 Temperature 98.6 F Pulse Rate 79 Respiratory Rate 18 Blood Pressure 149/92 Blood Pressure Position Semi-Fowlers - Physical Exam General: Alert, Oriented x3, No apparent distress HEENT: Atraumatic, PERRLA, EOMI, Normocephalic Oropharynx:: Negative for: Dry mucosa, Ulcerated lesions Neck:: Supple, Trachea midline. Negative for: JVD, bilateral Cardiac:: Regular rate, Regular rhythm, Normal S1, Normal S2. Negative for: Murmur Lungs: Clear to auscultation, Excusion symmetrical. Negative for: Rhonchi, Wheezes Abdomen:: Bowel sounds x 4, Soft, Non-tender, Non-distended. Negative for: Hepatosplenomegaly Extremities:: Negative for: Cyanosis, Edema Neurological: Cranial nerves II-XII grossly intact Skin:: Negative for: Lesions, Rash, Petechiae, Ecchymosis Psychiatric:: Appropriate affect, Euthymic Lymphatics:: Negative for: Cervical lymphadenopathy, Supraclavicular lymphadenopathy, Axillary lymphadenopathy Laboratory Data: Laboratory Tests 05/12/18 05/12/18 05/12/18 Range/Units 13:36 12:32 09:00 WBC (4.4-11.0) K/mm3 RBC (4.2-5.4) M/mm3 Hgb (12.0-15.0) g/dl Hct (37-47) % MCV (81-99) fL MCH (27.0-32.0) pg MCHC (32-36) g/gl RDW (11.6-14.6) % RDW Differential (35.1-43.9) fl Plt Count (150-450) K/mm3 MPV (6.2-12.0) fl Immature Gran % (Auto) (0.0-0.9) % Neut % (Auto) (47-70) % Lymph % (Auto) (19-41) % Humphreys % (Auto) (0-10) % Eos % (Auto) (0-5) % Baso % (Auto) (0-1) % Absolute Neuts (auto) (2.0-7.7) X10^3/uL Absolute Lymphs (auto) (0.83-4.51) X10^3/ul Total Counted Nucleated RBC % (0-5) % Hypochromasia Anisocytosis Absolute Retic (0-5) 10^3/uL Sodium 134 L (136-145) mmol/L Potassium 3.6 (3.5-5.1) mmol/L Chloride 100 (98-107) mmol/L Carbon Dioxide 27.0 (21.0-32.0) mmol/L Anion Gap 7 (5-15) BUN 9 (7-18) mg/dL Creatinine 0.49 L (0.55-1.02) mg/dL Estim Creat Clear Calc 31.54 ml/min Est GFR (MDRD) Af Amer 158 (>60) mL/min Est GFR (MDRD) Non-Af 131 (>60) mL/min BUN/Creatinine Ratio 18.5 (10-20) RATIO Glucose 245 H (74-106) mg/dL Lactic Acid 2.4 H (0.4-2.0) mmol/L Calcium 7.7 L (8.5-10.1) mg/dL Magnesium 1.7 (1.6-2.6) mg/dL Total Bilirubin 0.80 (0.20-1.00) mg/dL AST 31 (15-37) U/L ALT 36 (13-56) U/L Alkaline Phosphatase 431 H (45-117) U/L Total Protein 6.8 (6.4-8.2) g/dL Albumin 2.9 L (3.2-5.0) g/dL Globulin 3.9 (2.2-4.2) g/dL Albumin/Globulin Ratio 0.7 L (0.9-2.4) RATIO POC Glucose 174 H (70-110) mg/dL 05/12/18 05/12/18 Range/Units 09:00 09:00 WBC 7.7 (4.4-11.0) K/mm3 RBC 3.02 L (4.2-5.4) M/mm3 Hgb 9.2 L (12.0-15.0) g/dl Hct 29.8 L (37-47) % MCV 98.7 (81-99) fL MCH 30.5 (27.0-32.0) pg MCHC 30.9 L (32-36) g/gl RDW 15.8 H (11.6-14.6) % RDW Differential 55.6 H (35.1-43.9) fl Plt Count 394 (150-450) K/mm3 MPV 10.5 (6.2-12.0) fl Immature Gran % (Auto) 0.500 (0.0-0.9) % Neut % (Auto) 67.3 (47-70) % Lymph % (Auto) 13.2 L (19-41) % Humphreys % (Auto) 18.7 H (0-10) % Eos % (Auto) 0.0 (0-5) % Baso % (Auto) 0.3 (0-1) % Absolute Neuts (auto) 5.2 (2.0-7.7) X10^3/uL Absolute Lymphs (auto) 1.02 (0.83-4.51) X10^3/ul Total Counted Not Reportable Nucleated RBC % 0.8 (0-5) % Hypochromasia 1+ Anisocytosis 2+ Absolute Retic 0.06 (0-5) 10^3/uL Sodium (136-145) mmol/L Potassium (3.5-5.1) mmol/L Chloride (98-107) mmol/L Carbon Dioxide (21.0-32.0) mmol/L Anion Gap (5-15) BUN (7-18) mg/dL Creatinine (0.55-1.02) mg/dL Estim Creat Clear Calc ml/min Est GFR (MDRD) Af Amer (>60) mL/min Est GFR (MDRD) Non-Af (>60) mL/min BUN/Creatinine Ratio (10-20) RATIO Glucose (74-106) mg/dL Lactic Acid 2.1 H (0.4-2.0) mmol/L Calcium (8.5-10.1) mg/dL Magnesium (1.6-2.6) mg/dL Total Bilirubin (0.20-1.00) mg/dL AST (15-37) U/L ALT (13-56) U/L Alkaline Phosphatase (45-117) U/L Total Protein (6.4-8.2) g/dL Albumin (3.2-5.0) g/dL Globulin (2.2-4.2) g/dL Albumin/Globulin Ratio (0.9-2.4) RATIO POC Glucose (70-110) mg/dL Diagnostic Data: Diagnostic Data Brain MRI 05/12/18 06:55 IMPRESSION: No acute intracranial abnormality or masses. Electronically Signed: Elizabeth Hopkins MD at 15:03 EDT Tel , Service support , Cervical Spine MRI 05/12/18 09:09 IMPRESSION: C5/C6: Moderate central canal stenosis. Moderate left foraminal stenosis. C6/C7: Moderate left foraminal stenosis. Electronically Signed: Elizabeth Hopkins MD at 15:03 EDT Tel , Service support , Assessment and Plan 77 year old woman with metastatic pancreatic cancer. Most recent 1. Headache-rates pain 7 out of 10 at the present time, although Dilaudid has been effective. MRI brain reviewed negative for ENGINE WIPER involvement of metastatic pancreatic cancer. Thus recommend DC dexamethasone as we will likely just raise her blood sugars. Headache can occur in patients receiving Abraxane up to 14% of the time, however her description of headache and neck stiffness are not consistent with medication induced headache. Managed by primary team and neurology on board. 2. Metastatic pancreatic cancer now on Gemzar + Abraxane-recently progressive disease as evidenced by lung metastasis. Last dose of Abraxane administered on 05/02/18. Patient had plans to leave May 15 for [place] to meet with her oncologist there. Certainly in the event patient decides to delay travel, she is recommended she follow-up with Dr. [place] cancer care upon discharge. Dolores Abreu, MSN, GROUP SALES REPRESENTATIVE, AOCNP Medications: Medications Added to Medication List This Visit Category Date Time Status 0.9% Normal Saline 1,000 ml Med 05/12/18 11:00 Active IV 100 mls/hr 0.9% Saline Lock Med 05/12/18 07:20 Active 5 - 30 ml IV UD PRN Atorvastatin Calcium [Lipitor] Med 05/12/18 22:00 Active 5 mg PO QHS Bmx Liquid Med 05/12/18 11:34 Active 10 ml PO TID PRN PRN Calcium Carb/Vitamin D [Os-Hamilton 500MG + D] Med 05/12/18 10:00 Active 1 tablet PO BIDCM Calcium Carbonate [Tums] Med 05/12/18 11:00 Active 500 mg PO ACHS Cholecalciferol (VIT D3) [Vitamin D] Med 05/12/18 10:00 Active 1,000 unit PO DAILY Clonazepam [Klonopin] Med 05/12/18 22:00 Active 0.5 mg PO QHS Dexamethasone [Decadron] Med 05/12/18 14:00 Active 4 mg IV Q8 Dextrose 50%-Water [D50w Syringe] Med 05/12/18 09:13 Active See Protocol IV X1 PRN Duloxetine Hcl [Cymbalta] Med 05/12/18 10:00 Active 30 mg PO DAILY Enoxaparin [Lovenox] Med 05/12/18 10:00 Active 40 mg SC DAILY@1000 Famotidine [Pepcid] Med 05/12/18 11:00 Active 20 mg PO QHS PRN PRN Glucagon Med 05/12/18 09:13 Active 1 mg IM .X1 PRN Glucerna Shake Med 05/12/18 10:00 Active 120 ml PO 4X/DAY HYDROmorphone Inj [Dilaudid Inj] Med 05/12/18 06:55 Active 1 mg IV Q3H PRN PRN Insulin Basal Pump (Pt's Own) [Pump, Basal] Med 05/12/18 07:00 Active See Dose Instructions SC UD Insulin Lispro [Humalog kwikpen (BKC)] Med 05/12/18 11:00 Active See Protocol SQ ACHS Magnesium Hydroxide [Milk Of Magnesia] Med 05/12/18 06:55 Active 30 ml PO DAILY PRN PRN Magnesium Oxide [Mag-Ox 400] Med 05/12/18 10:00 Active 400 mg PO DAILY Meclizine HCl [Antivert] Med 05/12/18 07:29 Active 25 mg PO DAILY PRN PRN Multivitamins,Ther W-Minerals [Multivitamin With Med 05/12/18 10:00 Active Minerals] 1 tablet PO DAILY@0800 Ondansetron [Zofran] Med 05/12/18 06:55 Active 4 mg IV Q6H PRN PRN Pantoprazole Sodium [Protonix] Med 05/12/18 12:00 Active 20 mg PO DAILY Potassium Chloride [K-Dur] Med 05/12/18 13:00 Active 40 meq PO DAILYCM Senna/Docusate Sodium [Senokot-S, Rosalia-Colace] Med 05/12/18 10:00 Active 2 tablet PO BID Thiamine Hydrochloride [Vitamin B1] Med 05/12/18 10:00 Active 100 mg PO DAILY@0800 Valproate Sodium [Depacon] 500 mg Med 05/13/18 10:00 Active Dextrose 5%-Water 50 ml IV Q24 lipase/protease/amylase [Creon DR 12,000 Unit Capsule] Med 05/12/18 12:00 Active 6 capsule PO TIDCM proCHLORPERazine tablet [Compazine tablet] Med 05/12/18 10:59 Active 10 mg PO DAILY PRN Primary Care Provider: Out of Town Doctor Referring Provider: - Problem List (1) Pancreatic cancer metastasized to lung Status: Chronic (2) Headache Status: Acute
--- NOTE | 2018-05-12 15:34 | CON.PCM_ITS ---
Subjective Date of Service:: 05/12/18 Chief Complaint: headache History of Present Illness: Ms. Jennifer Estes is a very pleasant 77y.o.woman who was diagnosed with Pancreatic cancer stage IIB(T3 N1 M0) in October 2013, had neoadjuvant 5FU and Radiation therapy. Subsequently underwent Whipple's procedure, found to have 08/14 nodes positive and treated with adjuvant Gemzar and Oxaliplatin. She had increased Ca19-9 in 06/2016, found to 2 LLL lung nodules, bx showed metastatic pancreatic cancer and received Gemox on 07/27/2016- 01/14- in [place]. She received SBRT to lung nodules on 12/30, 01/02, 01/04, 01/06, 01/09 of this year. She spends summer/fall in [place] and winter/spring in [place]. PET/CT scan obtained 02/20/2017 showed persistent left lung disease and new lesions in the peritoneum suggestive of progressive disease. Began Onivyde, 5FU and Leucovorin 03/20/17- 04/10. Was found to have C.difficile diarrhea on 01/25/2018. PET/CT on 04/16/2018 showed mild increase in hypermetabolic activity in left lower lobe suggestive of progressive disease. She started therapy with Gemzar and Abraxane D1, 8 & 15, every 28 days on 04/18/2018. She developed chest pain/heaviness 04/25/2018, radiating to L shoulder, work up was negative. The patient developed severe 10 out of 10 generalized headache 05/11/2018 am which resulted in presentation to [facility] ED by evening. Transferred to [facility] for admission as MRI was not available in [place]. She describes hearing a popping sound immediately preceding the onset of the headache, however states this is often a common occurrence. The difference with the episode resulting in a more severe pain and longer duration. C/o neck stiffness and exacerbation of pain with neck extension. Dilaudid only modestly effective in reducing severity and voices concern as she hasn't been able to sleep. Past Medical History: Chronic Problems (Last Reviewed 05/12/18 @ 14:59 by Vlad Mai MD) Diabetes mellitus type 1, uncontrolled, insulin dependent (Chronic) Pancreatic cancer metastasized to lung (Chronic) Pancreatic cancer metastasized to intra-abdominal lymph node (Chronic) Past Medical/Surgical History: Past Medical History - Most Recent Inpatient Visit Past Medical History Start: 05/12/18 05:45 Text: Status: Complete Freq: ONCE Protocol: Document 05/12/18 05:45 MIKA (Rec: 05/12/18 07:20 [facility] [id number]) BMI Required to complete PMH What is Patient's BMI 16 Past Medical History Unable History Recalled No Query Text:Pt Unable/Family Not Present Neurologic Medical History Hx Stroke/TIA No Hx Dementia/Alzheimer's No Hx Parkinson's Disease No Hx Seizures No Hx Multiple Sclerosis No Hx Migraines No Cardiac Medical History VTE Present on Admission No Hx of Deep Vein Thrombosis/VTE/PE No Hx Hypertension No Hx Chest Pain/Angina No Hx Heart Attack No Hx Cardiac Surgery/Stents/Etc. No Hx Heart Failure No Hx Pacemaker/AICD No Hx Irregular Heartbeat and/or Afib No Hx Anticoagulant Therapy No Query Text:(Coumadin, Aspirin, Plavix, Xarelto, etc.) Hx Pain in Legs when Walking/Leg Cramps Yes: restless leg syndrome Respiratory Medical History Hx COPD No Hx Emphysema No Hx Smoking No Smoking Status Never smoker Hx Tobacco Use in last 12 months No Hx Sleep Apnea No Do you snore loudly (louder than talking No or can be heard through closed doors)? Do you often feel tired/ fatigued/ No sleepy during daytime? Has anyone observed you stop breathing No during sleep? STOP Results Negative GI Medical History Hx Ulcer No Hx Hepatitis No Hx Cirrhosis No Hx GI Bleed No Hx Unplanned Weight Loss Yes Genitourinary Medical History Indwelling Catheter in Place on Arrival/ No Admission Hx Renal Disease No Hx Dialysis No Musculoskeletal History Hx Arthritis No Hx Rheumatoid Arthritis No Endocrine Medical History Hx Diabetes Yes Hx Thyroid Disease No Hematologic Medical History Hx of Blood Transfusion Yes Hx of Transfusion in last 3 Months No Ever experience any problems with No transfusion(s)? Hx of Preganancy in last 3 Months N/A Nurse Filling Out Transfusion & SROBERTSO Questions: Date: 05/12/18 Time: 07:11 Psycho/Social Medical History Hx Depression Yes Hx Anxiety No Hx Behavior Disorder No Hx Alcohol Use No Hx Substance Use No Other Medical History Hx Blood Disorders No Hx Anemia Yes Hx Cancer Yes: PANCREATIC Hx Drug Resistant Organism No Wound/Pressure Injury Present on Arrival Yes /Admission Query Text:If yes, chart assessment in Shift/Clinical Findings Central Line/PICC/VAD Present on Arrival No /Admission Antibiotics within last 7 days? 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) GERD (gastroesophageal reflux disease) (Acute) Gallstones (Acute) H/O transfusion of whole blood (Acute) Heart murmur (Acute) High cholesterol (Acute) History of hysterectomy (Acute) IBS (irritable bowel syndrome) (Acute) Osteoarthritis (Acute) Pancreatitis (Acute) Recurrent UTI (Acute) Type 1 diabetes mellitus (Acute) Vision problems (Acute) Past Surgical History (Last Reviewed 05/12/18 @ 14:59 by Vlad Mai MD) History of hip replacement (Acute) History of pancreatectomy (Acute) Hx of cholecystectomy (Acute) Hx of splenectomy (Acute) - Social History Lives: Spouse/ Significant Other Smoking Status: Never smoker Alcohol: None Allergies/Adverse Reactions: Allergy/AdvReac Type Severity Reaction Status Date / Time hydrocodone [From Vicodin] AdvReac Intermediate Unknown Verified 05/09/18 11:26 pegfilgrastim [From Neulasta] AdvReac Intermediate Abd Verified 05/09/18 11:26 cramps/diarrhea procaine [From Novocain] AdvReac Mild Unknown Verified 05/09/18 11:26 Review of Systems Constitutional:: Reports: Weakness, Fatigue. Denies: Fever, Sweats, Weight loss, Appetite change, Chills Cardiovascular:: Denies: Chest pain, Palpitations, Dyspnea on exertion, Orthopnea, PND, Shortness of breath Respiratory: Denies: Cough, Hemoptysis, Shortness of Breath, Wheezing Gastrointestinal:: Denies: Abdominal pain, Nausea, Vomiting, Diarrhea, Constipation, Melena, Hematochezia Genitourinary: Denies: Dysuria, Hematuria, 15, Flank pain Musculoskeletal:: Denies: Back pain, Myalgia, Arthralgia Skin: Denies: Rash, Skin Changes, Wounds Neurological:: Reports: Headache, Numbness, Tingling. Denies: Dizziness, Visual changes, Tinnitus, Hearing loss Psychiatric: Denies: Anxiety, Depression, Homicidal Ideations, Suicidal Ideations Vital Signs Height 5 ft 4 in Weight: 93 lb 7.616 oz Weight in Pounds 93.5 lbs Pulse Ox 81 Temperature 98.6 F Pulse Rate 79 Respiratory Rate 18 Blood Pressure 149/92 Blood Pressure Position Semi-Fowlers - Physical Exam General: Alert, Oriented x3, No apparent distress HEENT: Atraumatic, PERRLA, EOMI, Normocephalic Oropharynx:: Negative for: Dry mucosa, Ulcerated lesions Neck:: Supple, Trachea midline. Negative for: JVD, bilateral Cardiac:: Regular rate, Regular rhythm, Normal S1, Normal S2. Negative for: Murmur Lungs: Clear to auscultation, Excusion symmetrical. Negative for: Rhonchi, Wheezes Abdomen:: Bowel sounds x 4, Soft, Non-tender, Non-distended. Negative for: Hepatosplenomegaly Extremities:: Negative for: Cyanosis, Edema Neurological: Cranial nerves II-XII grossly intact Skin:: Negative for: Lesions, Rash, Petechiae, Ecchymosis Psychiatric:: Appropriate affect, Euthymic Lymphatics:: Negative for: Cervical lymphadenopathy, Supraclavicular lymphadenopathy, Axillary lymphadenopathy Laboratory Data: Laboratory Tests 05/12/18 05/12/18 05/12/18 Range/Units 13:36 12:32 09:00 WBC (4.4-11.0) K/mm3 RBC (4.2-5.4) M/mm3 Hgb (12.0-15.0) g/dl Hct (37-47) % MCV (81-99) fL MCH (27.0-32.0) pg MCHC (32-36) g/gl RDW (11.6-14.6) % RDW Differential (35.1-43.9) fl Plt Count (150-450) K/mm3 MPV (6.2-12.0) fl Immature Gran % (Auto) (0.0-0.9) % Neut % (Auto) (47-70) % Lymph % (Auto) (19-41) % [place] % (Auto) (0-10) % Eos % (Auto) (0-5) % Baso % (Auto) (0-1) % Absolute Neuts (auto) (2.0-7.7) X10^3/uL Absolute Lymphs (auto) (0.83-4.51) X10^3/ul Total Counted Nucleated RBC % (0-5) % Hypochromasia Anisocytosis Absolute Retic (0-5) 10^3/uL Sodium 134 L (136-145) mmol/L Potassium 3.6 (3.5-5.1) mmol/L Chloride 100 (98-107) mmol/L Carbon Dioxide 27.0 (21.0-32.0) mmol/L Anion Gap 7 (5-15) BUN 9 (7-18) mg/dL Creatinine 0.49 L (0.55-1.02) mg/dL Estim Creat Clear Calc 31.54 ml/min Est GFR (MDRD) Af Amer 158 (>60) mL/min Est GFR (MDRD) Non-Af 131 (>60) mL/min BUN/Creatinine Ratio 18.5 (10-20) RATIO Glucose 245 H (74-106) mg/dL Lactic Acid 2.4 H (0.4-2.0) mmol/L Calcium 7.7 L (8.5-10.1) mg/dL Magnesium 1.7 (1.6-2.6) mg/dL Total Bilirubin 0.80 (0.20-1.00) mg/dL AST 31 (15-37) U/L ALT 36 (13-56) U/L Alkaline Phosphatase 431 H (45-117) U/L Total Protein 6.8 (6.4-8.2) g/dL Albumin 2.9 L (3.2-5.0) g/dL Globulin 3.9 (2.2-4.2) g/dL Albumin/Globulin Ratio 0.7 L (0.9-2.4) RATIO POC Glucose 174 H (70-110) mg/dL 05/12/18 05/12/18 Range/Units 09:00 09:00 WBC 7.7 (4.4-11.0) K/mm3 RBC 3.02 L (4.2-5.4) M/mm3 Hgb 9.2 L (12.0-15.0) g/dl Hct 29.8 L (37-47) % MCV 98.7 (81-99) fL MCH 30.5 (27.0-32.0) pg MCHC 30.9 L (32-36) g/gl RDW 15.8 H (11.6-14.6) % RDW Differential 55.6 H (35.1-43.9) fl Plt Count 394 (150-450) K/mm3 MPV 10.5 (6.2-12.0) fl Immature Gran % (Auto) 0.500 (0.0-0.9) % Neut % (Auto) 67.3 (47-70) % Lymph % (Auto) 13.2 L (19-41) % K[place]haw % (Auto) 18.7 H (0-10) % Eos % (Auto) 0.0 (0-5) % Baso % (Auto) 0.3 (0-1) % Absolute Neuts (auto) 5.2 (2.0-7.7) X10^3/uL Absolute Lymphs (auto) 1.02 (0.83-4.51) X10^3/ul Total Counted Not Reportable Nucleated RBC % 0.8 (0-5) % Hypochromasia 1+ Anisocytosis 2+ Absolute Retic 0.06 (0-5) 10^3/uL Sodium (136-145) mmol/L Potassium (3.5-5.1) mmol/L Chloride (98-107) mmol/L Carbon Dioxide (21.0-32.0) mmol/L Anion Gap (5-15) BUN (7-18) mg/dL Creatinine (0.55-1.02) mg/dL Estim Creat Clear Calc ml/min Est GFR (MDRD) Af Amer (>60) mL/min Est GFR (MDRD) Non-Af (>60) mL/min BUN/Creatinine Ratio (10-20) RATIO Glucose (74-106) mg/dL Lactic Acid 2.1 H (0.4-2.0) mmol/L Calcium (8.5-10.1) mg/dL Magnesium (1.6-2.6) mg/dL Total Bilirubin (0.20-1.00) mg/dL AST (15-37) U/L ALT (13-56) U/L Alkaline Phosphatase (45-117) U/L Total Protein (6.4-8.2) g/dL Albumin (3.2-5.0) g/dL Globulin (2.2-4.2) g/dL Albumin/Globulin Ratio (0.9-2.4) RATIO POC Glucose (70-110) mg/dL Diagnostic Data: Diagnostic Data Brain MRI 05/12/18 06:55 IMPRESSION: No acute intracranial abnormality or masses. Electronically Signed: Elizabeth Hopkins MD at 15:03 EDT Tel , Service support , Cervical Spine MRI 05/12/18 09:09 IMPRESSION: C5/C6: Moderate central canal stenosis. Moderate left foraminal stenosis. C6/C7: Moderate left foraminal stenosis. Electronically Signed: Elizabeth Hopkins MD at 15:03 EDT Tel , Service support , Assessment and Plan 77 year old woman with metastatic pancreatic cancer. Most recent 1. Headache-rates pain 7 out of 10 at the present time, although Dilaudid has been effective. MRI brain reviewed negative for CRANE MAN involvement of metastatic pancreatic cancer. Thus recommend DC dexamethasone as we will likely just raise her blood sugars. Headache can occur in patients receiving Abraxane up to 14% of the time, however her description of headache and neck stiffness are not consistent with medication induced headache. Managed by primary team and neurology on board. 2. Metastatic pancreatic cancer now on Gemzar + Abraxane-recently progressive disease as evidenced by lung metastasis. Last dose of Abraxane administered on 05/02/18. Patient had plans to leave May 15 for [place] to meet with her oncologist there. Certainly in the event patient decides to delay travel, she is recommended she follow-up with Dr. [place] cancer care upon discharge. Dolores Abreu, MSN, ASSET PROTECTION SPECIALIST, AOCNP Medications: Medications Added to Medication List This Visit Category Date Time Status 0.9% Normal Saline 1,000 ml Med 05/12/18 11:00 Active IV 100 mls/hr 0.9% Saline Lock Med 05/12/18 07:20 Active 5 - 30 ml IV UD PRN Atorvastatin Calcium [Lipitor] Med 05/12/18 22:00 Active 5 mg PO QHS Bmx Liquid Med 05/12/18 11:34 Active 10 ml PO TID PRN PRN Calcium Carb/Vitamin D [Os-Hamilton 500MG + D] Med 05/12/18 10:00 Active 1 tablet PO BIDCM Calcium Carbonate [Tums] Med 05/12/18 11:00 Active 500 mg PO ACHS Cholecalciferol (VIT D3) [Vitamin D] Med 05/12/18 10:00 Active 1,000 unit PO DAILY Clonazepam [Klonopin] Med 05/12/18 22:00 Active 0.5 mg PO QHS Dexamethasone [Decadron] Med 05/12/18 14:00 Active 4 mg IV Q8 Dextrose 50%-Water [D50w Syringe] Med 05/12/18 09:13 Active See Protocol IV X1 PRN Duloxetine Hcl [Cymbalta] Med 05/12/18 10:00 Active 30 mg PO DAILY Enoxaparin [Lovenox] Med 05/12/18 10:00 Active 40 mg SC DAILY@1000 Famotidine [Pepcid] Med 05/12/18 11:00 Active 20 mg PO QHS PRN PRN Glucagon Med 05/12/18 09:13 Active 1 mg IM .X1 PRN Glucerna Shake Med 05/12/18 10:00 Active 120 ml PO 4X/DAY HYDROmorphone Inj [Dilaudid Inj] Med 05/12/18 06:55 Active 1 mg IV Q3H PRN PRN Insulin Basal Pump (Pt's Own) [Pump, Basal] Med 05/12/18 07:00 Active See Dose Instructions SC UD Insulin Lispro [Humalog kwikpen (BKC)] Med 05/12/18 11:00 Active See Protocol SQ ACHS Magnesium Hydroxide [Milk Of Magnesia] Med 05/12/18 06:55 Active 30 ml PO DAILY PRN PRN Magnesium Oxide [Mag-Ox 400] Med 05/12/18 10:00 Active 400 mg PO DAILY Meclizine HCl [Antivert] Med 05/12/18 07:29 Active 25 mg PO DAILY PRN PRN Multivitamins,Ther W-Minerals [Multivitamin With Med 05/12/18 10:00 Active Minerals] 1 tablet PO DAILY@0800 Ondansetron [Zofran] Med 05/12/18 06:55 Active 4 mg IV Q6H PRN PRN Pantoprazole Sodium [Protonix] Med 05/12/18 12:00 Active 20 mg PO DAILY Potassium Chloride [K-Dur] Med 05/12/18 13:00 Active 40 meq PO DAILYCM Senna/Docusate Sodium [Senokot-S, Rosalia-Colace] Med 05/12/18 10:00 Active 2 tablet PO BID Thiamine Hydrochloride [Vitamin B1] Med 05/12/18 10:00 Active 100 mg PO DAILY@0800 Valproate Sodium [Depacon] 500 mg Med 05/13/18 10:00 Active Dextrose 5%-Water 50 ml IV Q24 lipase/protease/amylase [Creon DR 12,000 Unit Capsule] Med 05/12/18 12:00 Active 6 capsule PO TIDCM proCHLORPERazine tablet [Compazine tablet] Med 05/12/18 10:59 Active 10 mg PO DAILY PRN Primary Care Provider: Out of Town Doctor Referring Provider: - Problem List (1) Pancreatic cancer metastasized to lung Status: Chronic (2) Headache Status: Acute
[2018-05-12] MEDS: Amitriptyline 25 MG Tablet 50 MG PO (16:13)
[2018-05-12 16:21] LABS: Bacteria 0 SEEN /hpf (None Seen); Mucous, Urine 0 SEEN /hpf (<or=2+); Red Blood Cells-Urine 0 SEEN /hpf (0-5); Squamous Epithelial Cells - UA 0 SEEN /hpf (5-10); White Blood Cells 0 SEEN /hpf (0-5)
[2018-05-12 16:23] LABS: Color, Urine Yellow (Yellow); Glucose, Dipstick 1000 mg/dl (Normal); Ketone-Dipstick 5 mg/dl (Negative); Leukocyte Esterase-Dipstick Negative /ul (Negative); Nitrite-Dipstick Negative (Negative); Occult Blood-Urine Negative /ul (Negative); Protein-Dipstick Negative (Negative); Urine Bilirubin Dipstick Negative (Negative); Urine Clarity Clear (Clear); Urine Urobilinogen Normal (Normal)
[2018-05-12 16:56] LABS: Bedside Glucose 150 mg/dL (70-110)
--- NOTE | 2018-05-12 17:28 | NURSING ---
pt and informed did get medical records from [place] which states has a 8french power port. copy of record stating type of port given to patient for future reference as well as on the chart. discussed accessing port. At this point pt wishes just to continue with use of peripheral IV. Did inform patient that if she wishes will access it and spare her lab draw pokes. Pt and denies all further needs at present. Call light within reach.
[2018-05-12 17:53] VITALS: BP 147/88; PULSE 86; RESP 18; TEMP 37.2; O2SAT 100
[2018-05-12 18:55] LABS: Lactic Acid 2.6 mmol/L (0.4-2.0)
[2018-05-12 20:54] VITALS: BP 126/80; PULSE 83; RESP 16; TEMP 37.5; O2SAT 95
[2018-05-12 21:41] LABS: Bedside Glucose 186 mg/dL (70-110)
[2018-05-12 22:21] LABS: Reflex Lactate? Y
[2018-05-12 23:29] LABS: Lactic Acid 2.2 mmol/L (0.4-2.0)
[2018-05-12 23:34] VITALS: BP 113/65; PULSE 89; RESP 14; TEMP 37.4; O2SAT 93
--- NOTE | 2018-05-12 23:45 | NURSING ---
Dr garza made aware of pts vs and low grade temp per Rylie RN, also made aware pt very drowsy and unable to take hs meds. Continue to monitor.
[2018-05-13] VITALS (11 sets, daily range): BP systolic 115–144; BP diastolic 71–95; PULSE 84–102; RESP 16–20; TEMP 37.1–37.7; O2SAT 93–100
[2018-05-13] MEDS: Insulin Lispro 100 UNIT/ML INSULN.PEN SQ ×4 (05:55→22:33)
[2018-05-13] MEDS: Acetaminophen 325 MG Tablet 650 MG PO (05:59)
[2018-05-13 06:37] LABS: Absolute Lymphocyte Count 0.31 X10^3/ul (0.83-4.51); Absolute Neutrophil Count 2.7 X10^3/uL (2.0-7.7); Basophil# 0.01 X10^3/uL; Basophil% 0.3 % (0-1); Differential Indicated SCAN CRITERIA MET; Eosinophil# 0.01 X10^3/uL; Eosinophils% 0.3 % (0-5); Lymphocyte # 0.31 X10^3/ul (4.0); Lymphocyte % 8.1 % (19-41); Mean Corpuscular Hgb 30.7 pg (27.0-32.0); Monocyte# 0.75 X10^3/uL; Monocyte% 19.6 % (0-10); Neutrophil # 2.73 X10^3/uL (2.7-7.7); Neutrophil % 71.2 % (47-70); POSITIVE COUNT NO; POSITIVE DIFFERENTIAL YES; POSITIVE MORPHOLOGY NO; Platelet Count 483 K/mm3 (150-450); RBC Distribution Width CV 15.7 % (11.6-14.6); Red Blood Count 2.93 M/mm3 (4.2-5.4); White Blood Count 3.8 K/mm3 (4.4-11.0)
[2018-05-13 06:38] LABS: Absolute Nucleated RBC Count 0.06 10^3/uL (0-5); NRBC Flagged by Analyzer 1.5 % (0-5)
[2018-05-13 06:56] LABS: Anion Gap 7 (5-15); BUN 14 mg/dL (7-18); Calcium,Total 7.8 mg/dL (8.5-10.1); Chloride 102 mmol/L (98-107); Creatinine, Serum 0.56 mg/dL (0.55-1.02); EST Glomerular Filtration Rate 112 mL/min (>60); Est Glom Filt Rate - Afr Amer 135 mL/min (>60); Estimated Creatinine Clearance 31.54 ml/min; Glucose 258 mg/dL (74-106); Potassium 4.5 mmol/L (3.5-5.1); Sodium Level 135 mmol/L (136-145)
[2018-05-13] MEDS: Calcium Carbonate 500 MG Tablet PO ×4 (07:01→22:21)
[2018-05-13 07:03] LABS: Differential Comment SCANNED
[2018-05-13 07:50] LABS: Bedside Glucose 257 mg/dL (70-110)
[2018-05-13] MEDS: 0.9% NaCl Peripheral Flush Adult/Peds IV ×5 (08:10→16:07)
[2018-05-13] MEDS: Calcium Carb/Vitamin D 1 TABLET Tablet PO ×2 (08:28→16:19)
[2018-05-13] MEDS: Multivitamins,Ther W-Minerals Tablet 1 TABLET PO (08:28)
[2018-05-13] MEDS: Magnesium Oxide 400 MG Tablet PO (08:28)
[2018-05-13] MEDS: DULoxetine Hcl 30 MG Capsule PO (08:29)
[2018-05-13] MEDS: Thiamine Hydrochloride 100 MG Tablet PO (08:29)
[2018-05-13] MEDS: Pantoprazole Sodium 20 MG Tablet PO (08:30)
[2018-05-13] MEDS: 0.9% Normal Saline 1,000 ML 100 ML IV ×3 (08:34→22:10)
[2018-05-13 08:55] LABS: Lactic Acid 4.7 mmol/L (0.4-2.0)
[2018-05-13] MEDS: 0.9% Normal Saline 1,000 ML 500 ML IV (09:36)
[2018-05-13] MEDS: Enoxaparin 40 MG/0.4 ML Syringe SC (10:40)
[2018-05-13] MEDS: Glucerna Shake 120 ML LIQUID PO ×2 (10:40→22:29)
[2018-05-13 11:16] LABS: Bedside Glucose 179 mg/dL (70-110)
[2018-05-13] MEDS: Piperacil/Tazobactam 3.375 GM/50 ML ML IV ×3 (11:29→22:30)
--- NOTE | 2018-05-13 12:11 | PCM.PN.HOSP ---
Patient Problems: Active and Suspected Problems (Last Reviewed 05/12/18 @ 14:59 by Vlad Mai MD) Intractable abdominal pain (Acute) Headache (Acute) Subjective: Seen and examined. Patient has been walking around the nursing station on walker with physical therapist. Patient denies headache/head pain but has left-sided neck pain which moves around base of neck to the right. Patient has low-grade fever in the morning. Vitals are stable. Lactic acid high. empirically, started on IV vancomycin and Zosyn. No tachycardia/tachypnea or hypoxia. WBC decreased from normal to 3.8 thousand D Vitals/I&O's: Vital Signs Temp Pulse Resp BP Pulse Ox 99.6 F H 100 18 115/71 95 05/13/18 08:11 05/13/18 08:14 05/13/18 08:11 05/13/18 08:11 05/13/18 08:11 Oxygen Delivery Method Room Air Weight: 93 lb 7.616 oz Body Mass Index (BMI) 16.0 Intake and Output for Last 24 Hours 05/11/18 05/12/18 05/13/18 23:59 23:59 23:59 Intake Total 1714 / 1714 1384 / 1384 Output Total 0 / 0 100 / 100 Balance 1714 / 1714 1284 / 1284 General: Alert, Oriented x3, Cooperative, - - Generalized weakness secondary to cancer cachexia HEENT: Atraumatic, PERRLA, EOMI, Normocephalic Neck: Supple, No JVD, Negative Carotid Bruits Lungs: Clear to auscultation, No rhonchi, No wheeze, Diminished Cardiovascular: Regular rate, Regular Rhythm, Normal S1, Normal S2, No murmurs Abdomen: Bowel Sounds Present, Soft, Non Tender, Non-Distended Extremities: No edema, Capillary Refill Less than 3 Seconds Skin: - - Small skin excoriation on simmons of right leg and small skin tear on right wrist area. Musculoskeletal: No Tenderness to Palpation of Joints or Extremities Neurological: Cranial nerves II-XII grossly intact, Deep Tendon Reflexes 2+/4 and Symmetrical, Neuro grossly intact, - - Meningeal signs including neck rigidity and Brudzinski signs are negative. Power 5/5 at major joints. Generalized muscle muscle mass loss secondary to CA pancreas and chemotherapy. Psych/Mental Status: Normal Affect, Appropriate Microbiology Past 72 Hours 05/12/18 13:51 Mucosa - Nasopharyngeal Respiratory Panel (PCR) - Final Laboratory Results 05/12/18 12:32: POC Glucose 174 H 05/12/18 13:36: Lactic Acid 2.4 H 05/12/18 15:35: Urine Color Yellow, Urine Clarity Clear, Urine pH 7.0, Ur Specific [place] 1.010, Urine Protein Negative, Urine Glucose (UA) 1000 H, Urine Ketones 5 H, Urine Occult Blood Negative, Urine Nitrite Negative, Urine Bilirubin Negative, Urine Urobilinogen Normal, Ur Leukocyte Esterase Negative, Urine RBC 0 SEEN, Urine WBC 0 SEEN, Ur Squamous Epith Cells 0 SEEN, Urine Bacteria 0 SEEN, Urine Mucus 0 SEEN 05/12/18 16:49: POC Glucose 150 H 05/12/18 18:15: Lactic Acid 2.6 H 05/12/18 20:51: POC Glucose 186 H 05/12/18 22:54: Lactic Acid 2.2 H 05/13/18 05:55: POC Glucose 257 H 05/13/18 06:25: WBC 3.8 L, RBC 2.93 L, Hgb 9.0 L, Hct 29.0 L, MCV 99.0, MCH 30.7, MCHC 31.0 L, RDW 15.7 H, RDW Differential 56.0 H, Plt Count 483 H, MPV 10.0, Immature Gran % (Auto) 0.500, Neut % (Auto) 71.2 H, Lymph % (Auto) 8.1 L, [place] % (Auto) 19.6 H, Eos % (Auto) 0.3, Baso % (Auto) 0.3, Absolute Neuts (auto) 2.7, Absolute Lymphs (auto) 0.31 L, Total Counted Not Reportable, Nucleated RBC % 1.5, Differential Comment SCANNED, Diff Path Review November foll, Absolute Retic 0.06 05/13/18 06:25: Sodium 135 L, Potassium 4.5, Chloride 102, Carbon Dioxide 26.0, Anion Gap 7, BUN 14, Creatinine 0.56, Estim Creat Clear Calc 31.54, Est GFR (MDRD) Af Amer 135, Est GFR (MDRD) Non-Af 112, BUN/Creatinine Ratio 25.0 H, Glucose 258 H, Calcium 7.8 L 05/13/18 08:09: Lactic Acid 4.7 H* 05/13/18 10:50: MRSA (PCR) Pending 05/13/18 11:11: POC Glucose 179 H Current Medications Acetaminophen (Tylenol) 650 mg PO Q6H PRN PRN PRN Reason: pain/fever Last Admin: 05/13/18 05:59 Dose: 650 mg Atorvastatin Calcium (Lipitor) 5 mg PO QHS [facility] Last Admin: 05/12/18 21:28 Dose: Not Given Calcium Carbonate (Tums) 500 mg PO ACHS [facility] Last Admin: 05/13/18 11:18 Dose: 500 mg Calcium/Vitamin D (Os-Hamilton 500mg + D) 1 tablet PO BIDCM [facility] Last Admin: 05/13/18 08:28 Dose: 1 tablet Cholecalciferol (Vitamin D) 1,000 unit PO DAILY [facility] Last Admin: 05/13/18 10:40 Dose: 1,000 unit Clonazepam (Klonopin) 0.5 mg PO QHS [facility] Last Admin: 05/12/18 21:12 Dose: Not Given Dexamethasone Sodium Phosphate (Decadron) 4 mg IV Q8 [facility] Last Admin: 05/13/18 05:50 Dose: 4 mg Dextrose (D50w Syringe) 0 gm IV X1 PRN; Protocol PRN Reason: Hypoglycemia Duloxetine HCl (Cymbalta) 30 mg PO DAILY [facility] Last Admin: 05/13/18 08:29 Dose: 30 mg Enoxaparin Sodium (Lovenox) 40 mg SC DAILY@1000 [facility] Last Admin: 05/13/18 10:40 Dose: 40 mg Famotidine (Pepcid) 20 mg PO QHS PRN PRN PRN Reason: HEARTBURN Glucagon () 1 mg IM .X1 PRN PRN Reason: Hypoglycemia Hydromorphone HCl (Dilaudid Inj) 1 mg IV Q3H PRN PRN PRN Reason: SEVERE PAIN (6-05/02) Last Admin: 05/12/18 18:01 Dose: 1 mg Valproic Acid 500 mg/ Dextrose 55 mls @ 50 mls/hr IV Q24 [facility] Last Admin: 05/13/18 09:44 Dose: 50 mls/hr Piperacillin Sod/Tazobactam Sod (Zosyn) 3.375 gm in 50 mls @ 12.5 mls/hr IV Q8 [facility] Last Admin: 05/13/18 11:29 Dose: 12.5 mls/hr Sodium Chloride () 1,000 mls @ 100 mls/hr IV .Q10H [facility] Last Admin: 05/13/18 11:19 Dose: 100 mls/hr Insulin Aspart (Pump, Basal) 0 unit SC UD [facility] Last Admin: 05/13/18 08:26 Dose: Not Given Insulin Human Lispro (Humalog Kwikpen (Bkc)) 0 unit SQ ACHS [facility]; Protocol Last Admin: 05/13/18 11:18 Dose: 1 units Lidocaine/Diphenhydr/Alum/Mg/Simeth () 10 ml PO TID PRN PRN PRN Reason: MOUTH PAIN Magnesium Hydroxide (Milk Of Magnesia) 30 ml PO DAILY PRN PRN PRN Reason: Constipation Magnesium Oxide (Mag-Ox 400) 400 mg PO DAILY [facility] Last Admin: 05/13/18 08:28 Dose: 400 mg Meclizine HCl (Antivert) 25 mg PO DAILY PRN PRN PRN Reason: DIZZINESS Multivitamins/Minerals (Multivitamin With Minerals) 1 tablet PO DAILY@0800 [facility] Last Admin: 05/13/18 08:28 Dose: 1 tablet Nutritional Formula (Lactose Free) (Glucerna Shake) 120 ml PO 4X/DAY [facility] Last Admin: 05/13/18 10:40 Dose: 120 ml Ondansetron HCl (Zofran) 4 mg IV Q6H PRN PRN PRN Reason: NAUSEA/VOMITING Last Admin: 05/12/18 12:59 Dose: 4 mg Pancrelipase (Creon Dr 12,000 Unit Capsule) 6 capsule PO TIDCM [facility] Last Admin: 05/13/18 08:27 Dose: 6 capsule Pantoprazole Sodium (Protonix) 20 mg PO DAILY [facility] Last Admin: 05/13/18 08:30 Dose: 20 mg Potassium Chloride (K-Dur) 40 meq PO DAILYCM [facility] Last Admin: 05/13/18 08:27 Dose: 40 meq Prochlorperazine Maleate (Compazine Tablet) 10 mg PO DAILY PRN PRN Reason: NAUSEA Senna/Docusate Sodium (Senokot-S, Rosalia-Colace) 2 tablet PO BID [facility] Last Admin: 05/13/18 08:32 Dose: Not Given Sodium Chloride () 5 - 30 ml IV UD PRN PRN Reason: SALINE FLUSH Last Admin: 10/21/18 11:29 Dose: 10 ml Thiamine HCl (Vitamin B1) 100 mg PO DAILY@0800 [facility] Last Admin: 05/13/18 08:29 Dose: 100 mg Medical Necessity - Tobacco Use Smoking Status: Never smoker Assessment/Plan All Active Problems (Last Reviewed 05/12/18 @ 14:59 by Vlad Mai MD) Chest pain (Acute) Intractable abdominal pain (Acute) Headache (Acute) Chemotherapy management, encounter for (Acute) Dizziness (Resolved) Muscle cramping (Acute) Mucositis (Acute) C. 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 Patient denies fever, chills, URI symptoms, sudden loss of urinary or fecal incontinence or seizures. Denies chronic headache. Headache started in the front and is spread diffuse, severe and neck. Has visual symptoms of vertical malalignment but denies diplopia, photophobia or ptosis. Complaint of urinary urgency but no increased frequency, burning micturition or other lower urinary tract symptoms except chronic urinary incontinence that started after chemotherapy. Has history of CA pancreas diagnosed in 2013 status post appendectomy and chemo and radiation. Patient had 2 lung lesions in late 2015 which resolved or controlled after chemo. Patient lung exam came back in January 2018 and last chemo was about 1 week ago. Her oncologist is Dr. Greenfield. Twelve-lead EKG shows normal sinus rhythm. Labs from outside ER reviewed Assessment and plan 1. Intractable acute headache, exact etiology unclear but is resolved. Most probably chemotherapy-induced. Patient was initially started on IV Decadron and Depakote. Decadron is discontinued. No NSAIDs. ID was consulted as per request of neurologist. 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 C-spine MRI no acute but moderate C5-C6 central canal stenosis. Moderate left foraminal stenosis. Moderate left foraminal stenosis at C6-C7 2. High lactic acid, exact etiology unclear but suspect hypoperfusion: Initially patient did not had fever but now low-grade fever, T-max 99.9 associated with heart rate in low 100s but no tachypnea or hypoxia or hypotension on 05/13. Empirically started on IV Zosyn and vancomycin. Patient is on IV fluid normal saline. 1 L bolus over 2 hours ordered and then continue 100 mL/h. I spoke to Dr. Bah about discontinuation of steroid but lactic acid was noted high at that time. MRSA nasal screen pending and if negative vancomycin can be discontinued. 3. Metastatic CA pancreas with lung metastasis: Patient was on Gemzar + Abraxane simply for progressive disease as evident by lung metastasis. Last dose of Abraxane was on 05/02/2018. Patient had plan to leave [place] on May 15, coming Monday and I asked her to postpone as he is still in the middle of evaluation. DVT prophylaxis: On Lovenox iscussed with the patient and her and they have living will with CODE STATUS DNR CC arrest Code Visit Inpatient E&M: 15681 Subs Hosp L3
[2018-05-13 12:16] LABS: Reflex Lactate? Y
--- NOTE | 2018-05-13 12:16 | PN_ITS ---
Patient Problems: Active and Suspected Problems (Last Reviewed 05/12/18 @ 14:59 by Vlad Mia MD) Intractable abdominal pain (Acute) Headache (Acute) Subjective: Seen and examined. Patient has been walking around the nursing station on walker with physical therapist. Patient denies headache/head pain but has left-sided neck pain which moves around base of neck to the right. Patient has low-grade fever in the morning. Vitals are stable. Lactic acid high. empirically, started on IV vancomycin and Zosyn. No tachycardia/tachypnea or hypoxia. WBC decreased from normal to 3.8 thousand D Vitals/I&O's: Vital Signs Temp Pulse Resp BP Pulse Ox 99.6 F H 100 18 115/71 95 05/13/18 08:11 05/13/18 08:14 05/13/18 08:11 05/13/18 08:11 05/13/18 08:11 Oxygen Delivery Method Room Air Weight: 93 lb 7.616 oz Body Mass Index (BMI) 16.0 Intake and Output for Last 24 Hours 05/11/18 05/12/18 05/13/18 23:59 23:59 23:59 Intake Total 1714 / 1714 1384 / 1384 Output Total 0 / 0 100 / 100 Balance 1714 / 1714 1284 / 1284 General: Alert, Oriented x3, Cooperative, - - Generalized weakness secondary to cancer cachexia HEENT: Atraumatic, PERRLA, EOMI, Normocephalic Neck: Supple, No JVD, Negative Carotid Bruits Lungs: Clear to auscultation, No rhonchi, No wheeze, Diminished Cardiovascular: Regular rate, Regular Rhythm, Normal S1, Normal S2, No murmurs Abdomen: Bowel Sounds Present, Soft, Non Tender, Non-Distended Extremities: No edema, Capillary Refill Less than 3 Seconds Skin: - - Small skin excoriation on simmons of right leg and small skin tear on right wrist area. Musculoskeletal: No Tenderness to Palpation of Joints or Extremities Neurological: Cranial nerves II-XII grossly intact, Deep Tendon Reflexes 2+/4 and Symmetrical, Neuro grossly intact, - - Meningeal signs including neck rigidity and Brudzinski signs are negative. Power 5/5 at major joints. Generalized muscle muscle mass loss secondary to CA pancreas and chemotherapy. Psych/Mental Status: Normal Affect, Appropriate Microbiology Past 72 Hours 05/12/18 13:51 Mucosa - Nasopharyngeal Respiratory Panel (PCR) - Final Laboratory Results 05/12/18 12:32: POC Glucose 174 H 05/12/18 13:36: Lactic Acid 2.4 H 05/12/18 15:35: Urine Color Yellow, Urine Clarity Clear, Urine pH 7.0, Ur Specific [place] 1.010, Urine Protein Negative, Urine Glucose (UA) 1000 H, Urine Ketones 5 H, Urine Occult Blood Negative, Urine Nitrite Negative, Urine Bilirubin Negative, Urine Urobilinogen Normal, Ur Leukocyte Esterase Negative, Urine RBC 0 SEEN, Urine WBC 0 SEEN, Ur Squamous Epith Cells 0 SEEN, Urine Bacteria 0 SEEN, Urine Mucus 0 SEEN 05/12/18 16:49: POC Glucose 150 H 05/12/18 18:15: Lactic Acid 2.6 H 05/12/18 20:51: POC Glucose 186 H 05/12/18 22:54: Lactic Acid 2.2 H 05/13/18 05:55: POC Glucose 257 H 05/13/18 06:25: WBC 3.8 L, RBC 2.93 L, Hgb 9.0 L, Hct 29.0 L, MCV 99.0, MCH 30.7, MCHC 31.0 L, RDW 15.7 H, RDW Differential 56.0 H, Plt Count 483 H, MPV 10.0, Immature Gran % (Auto) 0.500, Neut % (Auto) 71.2 H, Lymph % (Auto) 8.1 L, [place] % (Auto) 19.6 H, Eos % (Auto) 0.3, Baso % (Auto) 0.3, Absolute Neuts (auto) 2.7, Absolute Lymphs (auto) 0.31 L, Total Counted Not Reportable, Nucleated RBC % 1.5, Differential Comment SCANNED, Diff Path Review November foll, Absolute Retic 0.06 05/13/18 06:25: Sodium 135 L, Potassium 4.5, Chloride 102, Carbon Dioxide 26.0, Anion Gap 7, BUN 14, Creatinine 0.56, Estim Creat Clear Calc 31.54, Est GFR (MDRD) Af Amer 135, Est GFR (MDRD) Non-Af 112, BUN/Creatinine Ratio 25.0 H, Glucose 258 H, Calcium 7.8 L 05/13/18 08:09: Lactic Acid 4.7 H* 05/13/18 10:50: MRSA (PCR) Pending 05/13/18 11:11: POC Glucose 179 H Current Medications Acetaminophen (Tylenol) 650 mg PO Q6H PRN PRN PRN Reason: pain/fever Last Admin: 05/13/18 05:59 Dose: 650 mg Atorvastatin Calcium (Lipitor) 5 mg PO QHS [facility] Last Admin: 05/12/18 21:28 Dose: Not Given Calcium Carbonate (Tums) 500 mg PO ACHS [facility] Last Admin: 05/13/18 11:18 Dose: 500 mg Calcium/Vitamin D (Os-[place] 500mg + D) 1 tablet PO BIDCM [facility] Last Admin: 05/13/18 08:28 Dose: 1 tablet Cholecalciferol (Vitamin D) 1,000 unit PO DAILY [facility] Last Admin: 05/13/18 10:40 Dose: 1,000 unit Clonazepam (Klonopin) 0.5 mg PO QHS [facility] Last Admin: 05/12/18 21:12 Dose: Not Given Dexamethasone Sodium Phosphate (Decadron) 4 mg IV Q8 [facility] Last Admin: 05/13/18 05:50 Dose: 4 mg Dextrose (D50w Syringe) 0 gm IV X1 PRN; Protocol PRN Reason: Hypoglycemia Duloxetine HCl (Cymbalta) 30 mg PO DAILY [facility] Last Admin: 05/13/18 08:29 Dose: 30 mg Enoxaparin Sodium (Lovenox) 40 mg SC DAILY@1000 [facility] Last Admin: 05/13/18 10:40 Dose: 40 mg Famotidine (Pepcid) 20 mg PO QHS PRN PRN PRN Reason: HEARTBURN Glucagon () 1 mg IM .X1 PRN PRN Reason: Hypoglycemia Hydromorphone HCl (Dilaudid Inj) 1 mg IV Q3H PRN PRN PRN Reason: SEVERE PAIN (6-05/02) Last Admin: 05/12/18 18:01 Dose: 1 mg Valproic Acid 500 mg/ Dextrose 55 mls @ 50 mls/hr IV Q24 [facility] Last Admin: 05/13/18 09:44 Dose: 50 mls/hr Piperacillin Sod/Tazobactam Sod (Zosyn) 3.375 gm in 50 mls @ 12.5 mls/hr IV Q8 [facility] Last Admin: 05/13/18 11:29 Dose: 12.5 mls/hr Sodium Chloride () 1,000 mls @ 100 mls/hr IV .Q10H [facility] Last Admin: 05/13/18 11:19 Dose: 100 mls/hr Insulin Aspart (Pump, Basal) 0 unit SC UD [facility] Last Admin: 05/13/18 08:26 Dose: Not Given Insulin Human Lispro (Humalog Kwikpen (Bkc)) 0 unit SQ ACHS [facility]; Protocol Last Admin: 05/13/18 11:18 Dose: 1 units Lidocaine/Diphenhydr/Alum/Mg/Simeth () 10 ml PO TID PRN PRN PRN Reason: MOUTH PAIN Magnesium Hydroxide (Milk Of Magnesia) 30 ml PO DAILY PRN PRN PRN Reason: Constipation Magnesium Oxide (Mag-Ox 400) 400 mg PO DAILY [facility] Last Admin: 05/13/18 08:28 Dose: 400 mg Meclizine HCl (Antivert) 25 mg PO DAILY PRN PRN PRN Reason: DIZZINESS Multivitamins/Minerals (Multivitamin With Minerals) 1 tablet PO DAILY@0800 [facility] Last Admin: 05/13/18 08:28 Dose: 1 tablet Nutritional Formula (Lactose Free) (Glucerna Shake) 120 ml PO 4X/DAY [facility] Last Admin: 05/13/18 10:40 Dose: 120 ml Ondansetron HCl (Zofran) 4 mg IV Q6H PRN PRN PRN Reason: NAUSEA/VOMITING Last Admin: 05/12/18 12:59 Dose: 4 mg Pancrelipase (Creon Dr 12,000 Unit Capsule) 6 capsule PO TIDCM [facility] Last Admin: 05/13/18 08:27 Dose: 6 capsule Pantoprazole Sodium (Protonix) 20 mg PO DAILY [facility] Last Admin: 05/13/18 08:30 Dose: 20 mg Potassium Chloride (K-Dur) 40 meq PO DAILYCM [facility] Last Admin: 05/13/18 08:27 Dose: 40 meq Prochlorperazine Maleate (Compazine Tablet) 10 mg PO DAILY PRN PRN Reason: NAUSEA Senna/Docusate Sodium (Senokot-S, Rosalia-Colace) 2 tablet PO BID [facility] Last Admin: 05/13/18 08:32 Dose: Not Given Sodium Chloride () 5 - 30 ml IV UD PRN PRN Reason: SALINE FLUSH Last Admin: 10/21/18 11:29 Dose: 10 ml Thiamine HCl (Vitamin B1) 100 mg PO DAILY@0800 [facility] Last Admin: 05/13/18 08:29 Dose: 100 mg Medical Necessity - Tobacco Use Smoking Status: Never smoker Assessment/Plan All Active Problems (Last Reviewed 05/12/18 @ 14:59 by Vlad Mai MD) Chest pain (Acute) Intractable abdominal pain (Acute) Headache (Acute) Chemotherapy management, encounter for (Acute) Dizziness (Resolved) Muscle cramping (Acute) Mucositis (Acute) C. 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 Patient denies fever, chills, URI symptoms, sudden loss of urinary or fecal incontinence or seizures. Denies chronic headache. Headache started in the front and is spread diffuse, severe and neck. Has visual symptoms of vertical malalignment but denies diplopia, photophobia or ptosis. Complaint of urinary urgency but no increased frequency, burning micturition or other lower urinary tract symptoms except chronic urinary incontinence that started after chemotherapy. Has history of CA pancreas diagnosed in 2013 status post appendectomy and chemo and radiation. Patient had 2 lung lesions in late 2015 which resolved or controlled after chemo. Patient lung exam came back in January 2018 and last chemo was about 1 week ago. Her oncologist is Dr. Greenfield. Twelve-lead EKG shows normal sinus rhythm. Labs from outside ER reviewed Assessment and plan 1. Intractable acute headache, exact etiology unclear but is resolved. Most probably chemotherapy-induced. Patient was initially started on IV Decadron and Depakote. Decadron is discontinued. No NSAIDs. ID was consulted as per request of neurologist. 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 C-spine MRI no acute but moderate C5-C6 central canal stenosis. Moderate left foraminal stenosis. Moderate left foraminal stenosis at C6-C7 2. High lactic acid, exact etiology unclear but suspect hypoperfusion: Initially patient did not had fever but now low-grade fever, T-max 99.9 associated with heart rate in low 100s but no tachypnea or hypoxia or hypotension on 05/13. Empirically started on IV Zosyn and vancomycin. Patient is on IV fluid normal saline. 1 L bolus over 2 hours ordered and then continue 100 mL/h. I spoke to Dr. Bah about discontinuation of steroid but lactic acid was noted high at that time. MRSA nasal screen pending and if negative vancomycin can be discontinued. 3. Metastatic CA pancreas with lung metastasis: Patient was on Gemzar + Abraxane simply for progressive disease as evident by lung metastasis. Last dose of Abraxane was on 05/02/2018. Patient had plan to leave [place] on May 15, coming Monday and I asked her to postpone as he is still in the middle of evaluation. DVT prophylaxis: On Lovenox iscussed with the patient and her and they have living will with CODE STATUS DNR CC arrest Code Visit Inpatient E&M: 46815 Subs Hosp L3
[2018-05-13 12:59] LABS: M R Staph aureus DNA By PCR Negative (Negative); Probe Check PASS; Specimen Processing Control PASS
[2018-05-13 13:23] LABS: Lactic Acid 4.3 mmol/L (0.4-2.0)
[2018-05-13] MEDS: 0.9% NaCl IVPB Med Flush (250 mL) 15 ML IV ×2 (14:08→16:13)
[2018-05-13 16:31] LABS: Bedside Glucose 355 mg/dL (70-110)
[2018-05-13] MEDS: clonazePAM 0.5 MG Tablet PO (22:17)
[2018-05-13] MEDS: Atorvastatin Calcium 10 MG Tablet 5 MG PO (22:19)
[2018-05-13] MEDS: Senna/Docusate Sodium 1 Tablet 2 TABLET PO (22:20)
[2018-05-14 00:21] LABS: Bedside Glucose 303 mg/dL (70-110)
[2018-05-14 04:45] VITALS: PULSE 77
[2018-05-14 05:37] VITALS: BP 107/68; PULSE 66; RESP 16; TEMP 36.7; O2SAT 97
[2018-05-14] MEDS: 0.9% NaCl IVPB Med Flush (250 mL) 15 ML IV (05:39)
[2018-05-14] MEDS: Piperacil/Tazobactam 3.375 GM/50 ML ML IV (05:39)
[2018-05-14 05:40] VITALS: PULSE 66
[2018-05-14] MEDS: Calcium Carbonate 500 MG Tablet PO ×2 (06:38→11:48)
[2018-05-14] MEDS: Insulin Lispro 100 UNIT/ML INSULN.PEN SQ ×2 (06:38→11:48)
[2018-05-14 06:46] LABS: Bedside Glucose 191 mg/dL (70-110)
[2018-05-14 07:28] VITALS: O2SAT 96
[2018-05-14 07:49] LABS: Anion Gap 8 (5-15); BUN 11 mg/dL (7-18); BUN/Creat Ratio 24.8 RATIO (10-20); Calcium,Total 7.8 mg/dL (8.5-10.1); Chloride 106 mmol/L (98-107); Creatinine, Serum 0.44 mg/dL (0.55-1.02); EST Glomerular Filtration Rate 146 mL/min (>60); Est Glom Filt Rate - Afr Amer 177 mL/min (>60); Estimated Creatinine Clearance 31.54 ml/min; Glucose 186 mg/dL (74-106); Potassium 4.6 mmol/L (3.5-5.1); Sodium Level 140 mmol/L (136-145)
[2018-05-14] MEDS: 0.9% Normal Saline 1,000 ML 100 ML IV (08:16)
[2018-05-14] MEDS: Senna/Docusate Sodium 1 Tablet 2 TABLET PO (08:17)
[2018-05-14] MEDS: Multivitamins,Ther W-Minerals Tablet 1 TABLET PO (08:17)
[2018-05-14] MEDS: Thiamine Hydrochloride 100 MG Tablet PO (08:17)
[2018-05-14] MEDS: Calcium Carb/Vitamin D 1 TABLET Tablet PO (08:17)
[2018-05-14] MEDS: DULoxetine Hcl 30 MG Capsule PO (08:18)
[2018-05-14] MEDS: Pantoprazole Sodium 20 MG Tablet PO (08:18)
[2018-05-14 08:19] LABS: Absolute Lymphocyte Count 0.36 X10^3/ul (0.83-4.51); Absolute Neutrophil Count 5.6 X10^3/uL (2.0-7.7); Basophil# 0.01 X10^3/uL; Basophil% 0.1 % (0-1); Lymphocyte # 0.36 X10^3/ul (4.0); Lymphocyte % 4.9 % (19-41); Mean Corp Hgb Conc 30.8 g/gl (32-36); Mean Corpuscular Hgb 30.4 pg (27.0-32.0); Mean Corpuscular Volume 98.9 fL (81-99); Mean Platelet Vol. 10.5 fl (6.2-12.0); Monocyte# 1.33 X10^3/uL; Monocyte% 18.1 % (0-10); Neutrophil # 5.62 X10^3/uL (2.7-7.7); Neutrophil % 76.8 % (47-70); Platelet Count 562 K/mm3 (150-450); RBC Distribution Width CV 16.1 % (11.6-14.6); RBC Distribution Width SD 56.8 fl (35.1-43.9); Red Blood Count 2.63 M/mm3 (4.2-5.4); White Blood Count 7.3 K/mm3 (4.4-11.0)
[2018-05-14] MEDS: Magnesium Oxide 400 MG Tablet PO (08:19)
[2018-05-14] MEDS: Enoxaparin 40 MG/0.4 ML Syringe SC (08:19)
[2018-05-14 08:27] LABS: Differential Indicated SCAN CRITERIA MET; POSITIVE COUNT NO; POSITIVE DIFFERENTIAL YES; POSITIVE MORPHOLOGY NO
[2018-05-14 08:52] VITALS: BP 110/83; PULSE 84; RESP 18; TEMP 36.7; O2SAT 99
--- NOTE | 2018-05-14 10:01 | DCINST_ITS ---
- Discharge Diagnoses Current Active Problems: Current Active and Chronic Problems (Last Reviewed 05/12/18 @ 14:59 by Vlad Mai MD) Intractable abdominal pain (Acute) Headache (Acute) You will use the following diet at home:: Regular Discharge Activity: Return to Normal Activity, May Not Drive Call your doctor if you observe: Fever of 101 or Higher, Numbness or Tingling, Inability to have a bowel movement, Shortness of breath, Dizziness, Fainting spells, Swelling in the ankles, Chest pain Allergies/Adverse Reactions: Allergies hydrocodone [From Vicodin] Adverse Reaction (Intermediate, Verified 05/09/18 11:26) Unknown MAKES HEART RACE pegfilgrastim [From Neulasta] Adverse Reaction (Intermediate, Verified 05/09/18 11:26) Abd cramps/diarrhea procaine [From Novocain] Adverse Reaction (Mild, Verified 05/09/18 11:26) Unknown GOES RIGHT TO SLEEP Medications to take at Discharge Calcium Carbonate [Tums] 500 mg PO 4X/DAY 02/03/17 Calcium Citrate/Vitamin D3 [Calcium Citrate-Vit D3 Tablet] 1 ea PO BID 02/03/17 Cholecalciferol (Vitamin D3) [Vitamin D3] 1,000 unit PO DAILY 02/03/17 Clonazepam [Klonopin] 0.5 mg PO QHS 02/03/17 Duloxetine HCl 30 mg PO DAILY 02/03/17 Glucagon,Human Recombinant [Glucagon Emergency Kit] 1 mg IJ PRN PRN 02/03/17 Ketoconazole [Nizoral] 120 ml TP UD 02/03/17 Magnesium Oxide [Magnesium] 500 mg PO DAILY 02/03/17 Multivit-Min/FA/Lycopen/Lutein [Centrum Silver Tablet] 1 tab PO DAILY 02/03/17 Omeprazole [Prilosec] 20 mg PO DAILY 02/03/17 Prochlorperazine Maleate [Compazine] 10 mg PO DAILY 02/03/17 Ranitidine HCl [Zantac 75] 75 mg PO QHS 02/03/17 Simvastatin [Zocor] 10 mg PO QHS 02/03/17 Thiamine Mononitrate [Vitamin B-1] 100 mg PO DAILY 02/03/17 Lipase/Protease/Amylase [Josafat Velasquez 36,000 Units Capsule] 2 ea PO TID #180 capsule. 12/06/17 denosumab 60 mg/mL subcutaneous syringe 60 mg SC [id number] 02/28/18 insulin aspart U- 100 100 unit/mL subcutaneous solution See Rx Instructions SC QDAY 02/28/18 meclizine 25 mg tablet 25 mg PO QDAY PRN 02/28/18 Magic Mouth Wash 1 dose PO PRN PRN 05/09/18 Primary Care Physician: [facility] Doctor,Out of [Primary Care Provider] - Please follow up with your Primary Care Physician in: in 2 weeks Test Results: Test results from this visit will be discussed in further detail at your follow- up appointment, if applicable. Please Follow Up With: Sanchez Greenfield MD When: in 1-2 weeks Please Follow Up With: David Bah MD When: prn if needed for fever or infection
--- NOTE | 2018-05-14 10:04 | PCM.DC.SUM ---
Discharge Date and Diagnosis - Problem List Patient Problems: Active and Suspected Problems (Last Reviewed 05/12/18 @ 14:59 by Vlad Mai MD) Intractable abdominal pain (Acute) Headache (Acute) Date of Admission: 05/12/18 Date of Discharge: 05/14/18 - Primary Discharge Diagnosis Active and Suspected Problems (Last Reviewed 05/12/18 @ 14:59 by lVad Mai MD) Intractable acute headache, exact etiology unclear but is resolved. 2. High lactic acid, most probably secondary to hypoperfusion; probably chemotherapy-induced: Infection/sepsis ruled out 3. 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 Patient denies fever, chills, URI symptoms, sudden loss of urinary or fecal incontinence or seizures. Denies chronic headache. Headache started in the front and is spread diffuse, severe and neck. Has visual symptoms of vertical malalignment but denies diplopia, photophobia or ptosis. Complaint of urinary urgency but no increased frequency, burning micturition or other lower urinary tract symptoms except chronic urinary incontinence that started after chemotherapy. Has history of CA pancreas diagnosed in 2013 status post appendectomy and chemo and radiation. Patient had 2 lung lesions in late 2015 which resolved or controlled after chemo. Patient lung exam came back in January 2018 and last chemo was about 1 week ago. Her oncologist is Dr. Greenfield. Twelve-lead EKG shows normal sinus rhythm. Assessment and plan 1. Intractable acute headache, exact etiology unclear but is resolved. Most probably chemotherapy-induced. Patient was initially started on IV Decadron and Depakote. Decadron is discontinued. No NSAIDs. ID was consulted as per request of neurologist. 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 C-spine MRI no acute but moderate C5-C6 central canal stenosis. Moderate left foraminal stenosis. Moderate left foraminal stenosis at C6-C7 2. High lactic acid, most probably secondary to hypoperfusion; probably chemotherapy-induced: Initially patient did not had fever but now low-grade fever, T-max 99.9 associated with heart rate in low 100s but no tachypnea or hypoxia or hypotension on 05/13. The patient was empirically started on IV Zosyn and vancomycin. Patient is on IV fluid normal saline. ID was consulted. I spoke to Dr. Bah and we agreed that there is no focus of infection. No fever or chills. MRSA nasal negative. Respiratory panel negative. Blood culture negative for 48 hours. Urine culture negative. Dr. Post advised no antibiotic patient can go home off antibiotic. 3. Metastatic CA pancreas with lung metastasis: Patient was on Gemzar + Abraxane simply for progressive disease as evident by lung metastasis. Last dose of Abraxane was on 05/02/2018. Patient had plan to leave [place] on May 15, coming Monday and was postponed. Severe protein calorie malnutrition with cancer cachexia DVT prophylaxis: On Lovenox Discussed with the patient and her and they have living will with CODE STAT[employer] DNR CC arrest. Discharge medication reconciliation done. Follow-up instructions given. Discharge medication and follow-up was discussed with the patient and his follow with Dr. Greenfield and ID Dr. Bah if patient spikes temperature or signs of infection Total time spent, exact 35 minutes on discharge meds reconciliation, examination, review of imaging and blood test and discussion with the patient on follow-up instructions. Patient Problems: Active and Suspected Problems (Last Reviewed 05/12/18 @ 14:59 by Vlad Mai MD) Intractable abdominal pain (Acute) Headache (Acute) Subjective: Patient is comfortable at baseline. No headache or neck pain. Objective: General: Alert, Oriented x3, Cooperative, - Generalized weakness secondary to cancer cachexia HEENT: Atraumatic, PERRLA, EOMI, Normocephalic Neck: Supple, No JVD, Negative Carotid Bruits Lungs: Clear to auscultation, No rhonchi, No wheeze, Diminished Cardiovascular: Regular rate, Regular Rhythm, Normal S1, Normal S2, No murmurs Abdomen: Bowel Sounds Present, Soft, Non Tender, Non-Distended Extremities: No edema, Capillary Refill Less than 3 Seconds Skin: - - Small skin excoriation on simmons of right leg and small skin tear on right wrist area. Musculoskeletal: No Tenderness to Palpation of Joints or Extremities Neurological: Cranial nerves II-XII grossly intact, Deep Tendon Reflexes 2+/4 and Symmetrical, Neuro grossly intact, - - Meningeal signs including neck rigidity and Brudzinski signs are negative. Power 5/5 at major joints. Generalized muscle muscle mass loss secondary to CA pancreas and chemotherapy. Psych/Mental Status: Normal Affect, Appropriate - Physical Exam Vital Signs Temp Pulse Resp BP Pulse Ox 98.1 F 84 18 110/83 H 99 05/14/18 08:52 05/14/18 08:52 05/14/18 08:52 05/14/18 08:52 05/14/18 08:52 Oxygen Delivery Method Room Air Weight: 93 lb 7.616 oz Body Mass Index (BMI) 16.0 Intake and Output for Last 24 Hours 05/12/18 05/13/18 05/14/18 23:59 23:59 23:59 Intake Total 1714 / 1714 3814 / 3814 1780 / 1780 Output Total 0 / 0 100 / 100 Balance 1714 / 1714 3714 / 3714 1780 / 1780 Microbiology Past 72 Hours 05/12/18 15:35 Urine Culture - Preliminary Urine, Clean Catch Culture exhibits no growth. 05/12/18 13:51 Respiratory Panel (PCR) - Final Mucosa - Nasopharyngeal Laboratory Tests Past 24 Hrs 05/13/18 05/13/18 05/14/18 10:50 12:42 06:11 WBC 7.3 RBC 2.63 L Hgb 8.0 L Hct 26.0 L MCV 98.9 MCH 30.4 MCHC 30.8 L RDW 16.1 H RDW Differential 56.8 H Plt Count 562 H MPV 10.5 Immature Gran % (Auto) 0.100 Neut % (Auto) 76.8 H Lymph % (Auto) 4.9 L [place] % (Auto) 18.1 H Eos % (Auto) 0.0 Baso % (Auto) 0.1 Absolute Neuts (auto) 5.6 Absolute Lymphs (auto) 0.36 L Total Counted Pending Sodium Potassium Chloride Carbon Dioxide Anion Gap BUN Creatinine Estim Creat Clear Calc Est GFR (MDRD) Af Amer Est GFR (MDRD) Non-Af BUN/Creatinine Ratio Glucose Lactic Acid 4.3 H* Calcium MRSA (PCR) Negative 05/14/18 06:11 WBC RBC Hgb Hct MCV MCH MCHC RDW RDW Differential Plt Count MPV Immature Gran % (Auto) Neut % (Auto) Lymph % (Auto) [place] % (Auto) Eos % (Auto) Baso % (Auto) Absolute Neuts (auto) Absolute Lymphs (auto) Total Counted Sodium 140 Potassium 4.6 Chloride 106 Carbon Dioxide 26.0 Anion Gap 8 BUN 11 Creatinine 0.44 L Estim Creat Clear Calc 31.54 Est GFR (MDRD) Af Amer 177 Est GFR (MDRD) Non-Af 146 BUN/Creatinine Ratio 24.8 H Glucose 186 H Lactic Acid Calcium 7.8 L MRSA (PCR) POC Glucose 05/14/18 05/13/18 05/13/18 06:37 22:32 16:05 POC Glucose 191 H 303 H 355 H 05/13/18 11:11 POC Glucose 179 H Discharge Activity: Return to Normal Activity, May Not Drive Call your doctor if you observe: Fever of 101 or Higher, Numbness or Tingling, Inability to have a bowel movement, Shortness of breath, Dizziness, Fainting spells, Swelling in the ankles, Chest pain Home Medications: Medications to take at Discharge Calcium Carbonate [Tums] 500 mg PO 4X/DAY 02/03/17 Calcium Citrate/Vitamin D3 [Calcium Citrate-Vit D3 Tablet] 1 ea PO BID 02/03/17 Cholecalciferol (Vitamin D3) [Vitamin D3] 1,000 unit PO DAILY 02/03/17 Clonazepam [Klonopin] 0.5 mg PO QHS 02/03/17 Duloxetine HCl 30 mg PO DAILY 02/03/17 Glucagon,Human Recombinant [Glucagon Emergency Kit] 1 mg IJ PRN PRN 02/03/17 Ketoconazole [Nizoral] 120 ml TP UD 02/03/17 Magnesium Oxide [Magnesium] 500 mg PO DAILY 02/03/17 Multivit-Min/FA/Lycopen/Lutein [Centrum Silver Tablet] 1 tab PO DAILY 02/03/17 Omeprazole [Prilosec] 20 mg PO DAILY 02/03/17 Prochlorperazine Maleate [Compazine] 10 mg PO DAILY 02/03/17 Ranitidine HCl [Zantac 75] 75 mg PO QHS 02/03/17 Simvastatin [Zocor] 10 mg PO QHS 02/03/17 Thiamine Mononitrate [Vitamin B-1] 100 mg PO DAILY 02/03/17 Lipase/Protease/Amylase [Josafat Velasquez 36,000 Units Capsule] 2 ea PO TID #180 capsule. 12/06/17 denosumab 60 mg/mL subcutaneous syringe 60 mg SC [id number] 02/28/18 insulin aspart U- 100 100 unit/mL subcutaneous solution See Rx Instructions SC QDAY 02/28/18 meclizine 25 mg tablet 25 mg PO QDAY PRN 02/28/18 Magic Mouth Wash 1 dose PO PRN PRN 05/09/18 Primary Care Physician: [facility],Out of [Primary Care Provider] - Please follow up with your Primary Care Physician in: in 2 weeks Please Follow Up With: Sanchez Greenfield MD When: in 1-2 weeks Medical Necessity - Tobacco Use Smoking Status: Never smoker Meaningful Use Info Meaningful Use Diagnoses (Choose all that apply): None applicable Code Visit Inpatient E&M: 01644 Disch Hosp
[2018-05-14 11:33] LABS: Anisocytosis 2+; Platelet Estimate A (ADEQ); Target Cells 1+
[2018-05-14 12:05] VITALS: BP 134/83; PULSE 80; RESP 16; TEMP 36.6; O2SAT 100
[2018-05-14 12:05] LABS: Bedside Glucose 276 mg/dL (70-110)
--- NOTE | 2018-05-14 12:18 | CASEMGMT ---
Social Work Note MS3 Followed up with patient and regarding resources that social services analyst left over the weekend (re: palliative care). Patient nor identify any needs at home going, and not interested in a palliative consult at this time. Patient reports to get to go home today and to be happy about this. Plan: Home with to assist as needed. -SHO So, ATTORNEY GENERAL
--- NOTE | 2018-05-14 13:04 | CON.PCM_ITS ---
Problem List (1) Headache Status: Acute Reason for Consult: headache Consulted by: Dr. Syed History of Present Illness: The patient is a 77 year old F with stage 4 panc cancer on chemo via port. Last chemo was about 10 days ago. Presented to ED 05/12 with sudden onset of severe 10/10 headache, pain was sharp, throughout whole head, no vision changes, mild neck stiffness. No issues with port. No fever or chills. In ED, wbc was ok, no fever, neuro consulted. Headache improved, but vanc/zosyn were added 05/13. Now headache resolved, d/c home planned. Full ROS performed and neg except as noted above. 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) Allergies/Adverse Reactions: Allergies hydrocodone [From Vicodin] Adverse Reaction (Intermediate, Verified 05/09/18 11:26) Unknown MAKES HEART RACE pegfilgrastim [From Neulasta] Adverse Reaction (Intermediate, Verified 05/09/18 11:26) Abd cramps/diarrhea procaine [From Novocain] Adverse Reaction (Mild, Verified 05/09/18 11:26) Unknown GOES RIGHT TO SLEEP Home Medications: Ambulatory Orders Medication Instructions Recorded Calcium Carbonate [Tums] 500 mg PO 4X/DAY 02/03/17 Calcium Citrate/Vitamin D3 1 ea PO BID 02/03/17 [Calcium Citrate-Vit D3 Tablet] Cholecalciferol (Vitamin D3) 1,000 unit PO DAILY 02/03/17 [Vitamin D3] Clonazepam [Klonopin] 0.5 mg PO QHS 02/03/17 Duloxetine HCl 30 mg PO DAILY 02/03/17 Glucagon,Human Recombinant 1 mg IJ PRN PRN 02/03/17 [Glucagon Emergency Kit] Ketoconazole [Nizoral] 120 ml TP UD 02/03/17 Magnesium Oxide [Magnesium] 500 mg PO DAILY 02/03/17 Multivit-Min/FA/Lycopen/Lutein 1 tab PO DAILY 02/03/17 [Centrum Silver Tablet] Omeprazole [Prilosec] 20 mg PO DAILY 02/03/17 Prochlorperazine Maleate 10 mg PO DAILY 02/03/17 [Compazine] Ranitidine HCl [Zantac 75] 75 mg PO QHS 02/03/17 Simvastatin [Zocor] 10 mg PO QHS 02/03/17 Thiamine Mononitrate [Vitamin B-1] 100 mg PO DAILY 02/03/17 Lipase/Protease/Amylase [Josafat Velasquez 2 ea PO TID #180 capsule. 12/06/17 36,000 Units Capsule] denosumab 60 mg/mL subcutaneous 60 mg SC [id number] 02/28/18 syringe insulin aspart U- 100 100 unit/mL See Rx Instructions SC QDAY 02/28/18 subcutaneous solution meclizine 25 mg tablet 25 mg PO QDAY PRN 02/28/18 Magic Mouth Wash 1 dose PO PRN PRN 05/09/18 - Social History Tobacco Use: non-smoker Vital Signs Temp Pulse Resp BP Pulse Ox 97.9 F 80 16 134/83 H 100 05/14/18 12:05 05/14/18 12:05 05/14/18 12:05 05/14/18 12:05 05/14/18 12:05 Oxygen Delivery Method Room Air Weight: 42.4 kg Body Mass Index (BMI) 16.0 Microbiology Past 72 Hours 05/12/18 15:35 Urine Culture - Preliminary Urine, Clean Catch Culture exhibits no growth. 05/12/18 13:51 Respiratory Panel (PCR) - Final Mucosa - Nasopharyngeal Laboratory Tests Past 24 Hrs 05/13/18 05/14/18 05/14/18 12:42 06:11 06:11 WBC 7.3 RBC 2.63 L Hgb 8.0 L Hct 26.0 L MCV 98.9 MCH 30.4 MCHC 30.8 L RDW 16.1 H RDW Differential 56.8 H Plt Count 562 H MPV 10.5 Immature Gran % (Auto) 0.100 Neut % (Auto) 76.8 H Lymph % (Auto) 4.9 L [place] % (Auto) 18.1 H Eos % (Auto) 0.0 Baso % (Auto) 0.1 Absolute Neuts (auto) 5.6 Absolute Lymphs (auto) 0.36 L Total Counted Not Reportable Differential Comment Platelet Estimate A Anisocytosis 2+ Target Cells 1+ Sodium 140 Potassium 4.6 Chloride 106 Carbon Dioxide 26.0 Anion Gap 8 BUN 11 Creatinine 0.44 L Estim Creat Clear Calc 31.54 Est GFR (MDRD) Af Amer 177 Est GFR (MDRD) Non-Af 146 BUN/Creatinine Ratio 24.8 H Glucose 186 H Lactic Acid 4.3 H* Calcium 7.8 L - Other Studies Radiology: [] reviewed Other Studies: [] Route of nutrition/ use of supplements: [] Nutritional Intake: [] IV Site: [] Small Catheter: [] - Physical Exam General: Alert, Oriented x3, Cooperative, No apparent distress HEENT: Atraumatic, PERRLA, EOMI Neck: Supple, No Nodes Lungs: Clear to auscultation, Normal air movement Cardiovascular: Regular rate, Regular Rhythm Abdomen: Soft, Non Tender, Non-Distended Extremities: No edema Skin: No rashes IV Site: Central Line, without redness Musculoskeletal: No Tenderness to Palpation of Joints or Extremities Neurological: Cranial nerves II-XII grossly intact - Assessment/Plan Antibiotics: [] Assessment/Plan: [] Active and Suspected Problems (Last Reviewed 05/12/18 @ 14:59 by Vlad Mai MD) Intractable abdominal pain (Acute) Headache (Acute) No sign of infection, ok for d/c home off of abx. headache resolved. Will follow, thank you, d/w Dr. Syed.
[2018-05-14] MEDS: 0.9% NaCl VAD Flush 10 ML IV (13:20)
[2018-05-15 15:10] LABS: Pathologist Review Reviewed
== END 2018-05-14 13:54 | disposition home or self-care (01) | DRG 102 ==
PROVIDERS: Admitting Provider Hospitalist; Visit Provider Internal Medicine
DX: R51 Headache (principal); E43 Unspecified severe protein-calorie malnutrition; C25.9 Malignant neoplasm of pancreas, unspecified; C78.02 Secondary malignant neoplasm of left lung; R64 Cachexia; Z68.1 Body mass index [BMI] 19.9 or less, adult; E89.1 Postprocedural hypoinsulinemia; C77.2 Secondary and unspecified malignant neoplasm of intra-abdominal lymph nodes; T45.1X5A Adverse effect of antineoplastic and immunosuppressive drugs, initial encounter; Z79.4 Long term (current) use of insulin; Z96.41 Presence of insulin pump (external) (internal); Z90.410 Acquired total absence of pancreas; E13.9 Other specified diabetes mellitus without complications; Z92.3 Personal history of irradiation; R79.89 Other specified abnormal findings of blood chemistry
CPT/HCPCS: 36415; 70553; 71046; 72141; 80048; 80053; 81001; 82962; 83605; 83735; 85025; 87040; 87086; 87633; 87641; 97162; 97165; 97802; A9585; J7030; J7040; J7050; A4216; J2405